=== PATIENT | female | born 1970 | race Hispanic/Latino ===

== ENCOUNTER 2017-12-10 22:45 | Inpatient (IN) | payer OTHER ==
--- NOTE | 2017-12-10 23:29 | XRay Report ---
FINAL REPORT PROCEDURE: XR CHEST 1V AP TECHNIQUE: Chest radiograph anteroposterior view. HISTORY: Dyspnea. COMPARISON: No prior studies are available for comparison. FINDINGS: Heart: Normal. Mediastinum/Vessels: Moderate cardiomegaly. Central vascular congestion. Lungs/Pleural space: Diffuse perihilar indistinctness. Perihilar airspace disease, more evident in the right upper and right lower lobes. Left retrocardiac opacity. Bilateral pleural effusions. Bony thorax: Narrowing and osteophytes of the right acromioclavicular joint. Life support devices: None. IMPRESSION: Cardiomegaly. Central vascular congestion. Diffuse perihilar indistinctness with airspace disease, more evident in the right upper and right lower lobes. Bilateral pleural effusions. Consider congestive heart failure, cannot exclude underlying pneumonia.
[2017-12-11 00:13] LABS: Hematocrit 26.4 % (30.3-42.9); Hemoglobin 8.2 gm/dl (10.1-14.3); Mean Corpuscular HGB Conc 31 % (30-34); Mean Corpuscular Volume 80 fl (79-97); Platelet Count 325 K/mm3 (140-440); Red Blood Count 3.31 M/mm3 (3.65-5.03); Red Cell Distribution Width 16.9 % (13.2-15.2)
[2017-12-11 00:23] LABS: Albumin 3.2 g/dL (3.9-5); Calcium 8.3 mg/dL (8.4-10.2)
[2017-12-11 00:33] LABS: INR 1.05 (0.87-1.13); Mean Corpuscular Hemoglobin 25 pg (28-32)
[2017-12-11 00:34] LABS: Partial Thromboplastin Time 31.7 Sec. (24.2-36.6)
[2017-12-11 00:38] LABS: Bacteria,Urine 2+ /HPF (Negative); Bilirubin,Urine NEG (Negative); Blood,Urine MOD (Negative); Color,Urine Yellow (Yellow); Mucus,Urine FEW /HPF
[2017-12-11 00:50] LABS: Trichomonas,Urine Present /HPF
[2017-12-11 00:52] LABS: Amphetamine Screen,Urine PRESUMPTIVE NEGATIVE; Cannabinoid Screen,Urine PRESUMPTIVE NEGATIVE; Cocaine Screen,Urine PRESUMPTIVE NEGATIVE; Methadone Screen,Urine PRESUMPTIVE NEGATIVE; Opiate Screen,Urine PRESUMPTIVE NEGATIVE
[2017-12-11 01:05] LABS: Benzodiazepines Screen,Urine PRESUMPTIVE POSITIVE
[2017-12-11] MEDS ORDERED: LASIX IV ONE (01:16)
[2017-12-11] MEDS ORDERED: LEVAQUIN 750MG/150ML 750 MG/150 ML BAG IV ONE (01:16)
[2017-12-11] MEDS ORDERED: BABY ASPIRIN PO ONE (01:16)
--- NOTE | 2017-12-11 02:48 | Emergency Department Report ---
HPI - General Chief Complaint: Dyspnea/Respdistress Time Seen by Provider: 12/10/17 22:54 - HPI HPI: 47-year-old female presents to the emergency department by EMS with what appears to be some respiratory distress and hypoxia. The patient had said that she just left from [facility] this morning. She says that she had spent about 10 days here and it made it to leaving AGAINST MEDICAL ADVICE at that time. The patient had left the hospital and went to a friend's house to line up examiner some stuff when she suddenly felt very hot and short of breath and laid down in the garage after taking most of her clothes off. EMS arrived, the patient having some difficulty breathing and a pulse ox in the 60s. They gave her some supplemental oxygen and eventually tried a CPAP after giving her some Versed and they got her pulse ox up into the high 80s. The patient presents slightly diaphoretic and having shortness of breath. However she is a poor historian about her history. She presented saying that her name is Linn Wong but under this name we were unable to find any previous visits. In the middle of her ED visit, the patient explained that her name is Linn Fernandez. With this given name we were able to look up her previous visit and she did in fact leave AGAINST MEDICAL ADVICE this morning. She had previously been here for fever, shortness of breath, chronic back pains and was found to have MRSA bacteremia. She was being followed by infectious disease. ED Past Medical Hx - Social History Smoking Status: Unknown if ever smoked - Medications Home Medications: Home Medications Medication Instructions Recorded Confirmed Last Taken Type Unobtainable 12/10/17 12/10/17 Unknown History ED Review of Systems ROS: Stated complaint: RESPIRATORY DISTRESS Other details as noted in HPI Constitutional: diaphoresis, fever Eyes: denies: eye pain, eye discharge, vision change ENT: denies: ear pain, throat pain Respiratory: cough, shortness of breath, SOB with exertion Cardiovascular: denies: chest pain, palpitations Gastrointestinal: nausea. denies: vomiting Genitourinary: denies: urgency, dysuria, discharge Musculoskeletal: back pain (chronic). denies: joint swelling Skin: denies: rash, lesions Neurological: denies: headache, numbness Physical Exam - Physical Exam Vital Signs: Vital Signs 12/10/17 12/10/17 12/11/17 22:45 22:50 00:05 Temperature 98.3 F Pulse Rate 126 H 130 H 101 H Respiratory 32 H 31 H 18 Rate Blood Pressure 168/103 Blood Pressure 118/69 [Left] O2 Sat by Pulse 100 100 98 Oximetry Physical Exam: GENERAL: Patient is ill-appearing. HENT: Normocephalic. Atraumatic. Patient has moist mucous membranes. EYES: Extraocular motions are intact. Pupils equal reactive to light bilaterally. NECK: Supple. Trachea is midline. CHEST/LUNGS: Coarse breath sounds throughout the chest. There is some tachypnea and accessory muscle use. There is respiratory distress noted. HEART/CARDIOVASCULAR: Regular. There is mild to moderate tachycardia. There is no murmur. ABDOMEN: Abdomen is soft, nontender. Patient has normal bowel sounds. There is no abdominal distention. SKIN: Patient is diaphoretic. NEURO: The patient is awake, alert. Patient is not very cooperative at this time. Pulling off CPAP/BiPAP mask. Unable to give a good history. MUSCULOSKELETAL: There is no tenderness or deformity. There is no limitation range of motion. There is no evidence of acute injury. ED Course Vital Signs 12/10/17 12/10/17 12/11/17 22:45 22:50 00:05 Temperature 98.3 F Pulse Rate 126 H 130 H 101 H Respiratory 32 H 31 H 18 Rate Blood Pressure 168/103 Blood Pressure 118/69 [Left] O2 Sat by Pulse 100 100 98 Oximetry ED Medical Decision Making - Lab Data Result diagrams: 12/10/17 23:17 12/10/17 23:17 - EKG Data -: EKG Interpreted by Me EKG shows normal: sinus rhythm ( PACs), axis (left axis deviation), intervals ( slightly prolonged QTC), QRS complexes, ST-T waves Rate: tachycardia (106 bpm) - EKG Data When compared to previous EKG there are: previous EKG unavailable Interpretation: other (sinus tachycardia, PACs) - Radiology Data Radiology results: report reviewed, image reviewed interpreted by me: Chest x-ray shows some cardiomegaly, pulmonary vascular congestion and some pulmonary edema. This is concerning for CHF. CTA CHEST: HISTORY: Shortness of breath, elevated d-dimer. COMPARISON: none. TECHNIQUE: Helical CT in 1.25mm intervals following IV contrast. Pulmonary embolus protocol. Sagittal and coronal reformatted images. Rotational MIP images. FINDINGS: Contrast bolus is satisfactory. No pulmonary embolus is identified. Thyroid gland: Normal. Tracheobronchial tree: Normal. Esophagus: Normal. Heart: Mild cardiomegaly. Pericardium: Normal. Mediastinum: There are a few mildly enlarged lymph nodes in the right paratracheal chain and AP window. One of the largest lymph nodes in the AP window measures 2.6 x 1.5 cm. Calcified lymph nodes are noted in the subcarinal chain and left hilar chain consistent with chronic granulomatous disease. The aorta is within normal limits. Lung Martinez: Bilateral groundglass opacities are identified which are most consistent with pulmonary edema. Focal atelectasis is noted in the posterior right upper lobe. No underlying parenchymal lung disease is appreciated. Mild atelectatic changes in both lower lobes. Pleural Spaces: Moderate layering right pleural effusion. Small layering left pleural effusion. No pneumothorax. 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 No acute fracture or bony lesion is identified. IMPRESSION: No evidence for pulmonary embolus. Cardiomegaly, pulmonary edema and bilateral pleural effusions consistent with CHF or volume overload. Slightly prominent mediastinal lymph nodes as described. These may be reactive in nature. Followup is recommended. - Medical Decision Making This patient came in as a respiratory distress. After she was slightly hypoxic and would not tolerate the CPAP mask. However we switched her to BiPAP and she was tolerated for longer periods of time, enough to get her pulse ox back up. ABG was done that was not significant for any severe acid-base disorder. Lungs sounded very wet. Chest x-ray shows signs of CHF or volume overload. Labs show a 20,000 white count, elevated BNP and the patient has moderately elevated troponins. She also had a very elevated d-dimer. About this time her workup, the patient was able to tell us the previous name that she was admitted to the hospital for nausea with look up the previous records that show she was admitted to the hospital for MRSA bacteremia. I added vancomycin to the Levaquin she was given. The patient was placed on a heparin drip secondary to the elevated troponins and possible NSTEMI. CT angiography did not show any pulmonary embolism and also appears consistent with CHF. Patient was given some Lasix for diuresis. She was admitted to the hospital for further evaluation and accepted by Dr. Ortiz. - Differential Diagnosis CHF, PE, TN, and ammonia Critical Care Time: Yes Critical care time in (mins) excluding proc time.: 35 Critical care attestation.: If time is entered above; I have spent that time in minutes in the direct care of this critically ill patient, excluding procedure time. Critical care time spent on this patient during her initial evaluation, multiple re-evaluations, managing her respiratory distress with BiPAP, ordering interpretation of labs and imaging. Critical Care Time: 35 minutes ED Disposition Clinical Impression: NSTEMI (non-ST elevated myocardial infarction), MRSA bacteremia, Respiratory distress CHF (congestive heart failure) Qualifiers: Heart failure type: unspecified Heart failure chronicity: acute Qualified Code( s): I50.9 - Heart failure, unspecified Disposition: DC-09 OP ADMIT IP TO THIS HOSP Is pt being admited?: Yes Condition: Serious
[2017-12-11] MEDS ORDERED: HEPARIN 10,000 UNITS/10 ML IV ONE (02:50)
[2017-12-11 02:54] LABS: Anisocytosis 2+; Band Neutrophils # (Manual) 3.7 K/mm3; Basophils % (Manual) 0 % (0.0-1.8); Eosinophils % (Manual) 0 % (0.0-4.3); Hypochromasia 1+; Total Cells Counted 100
[2017-12-11 02:55] LABS: Large Platelets Few; Ovalocytes Few; Stomatocytes Few; Tear Drop Cells Few
[2017-12-11] MEDS ORDERED: VANCOMYCIN/NS 1 GM/250 ML 1 GM/250 ML BAG IV SCH ×2 (03:00→07:00)
[2017-12-11] MEDS ORDERED: VANCOMYCIN PHARMACY TO DOSE IV SCH ×2 (03:00→07:00)
[2017-12-11] MEDS ORDERED: VANCOMYCIN 1,750 MG in NACL 0.9% 500 ML 500 ML IV ONE (03:00)
[2017-12-11] MEDS ORDERED: XYLOCAINE 1% MPF 5 mL INFILTRATI ONE (03:47)
[2017-12-11] MEDS ORDERED: NACL 0.9% 1000 ML 1,000 ML IV SCH (06:00)
[2017-12-11] MEDS ORDERED: ZOFRAN IV PRN (06:00)
[2017-12-11] MEDS ORDERED: SODIUM CHLORIDE FLUSH SYRINGE 10 ML IV PRN (06:00)
--- NOTE | 2017-12-11 06:18 | History and Physical Report ---
History of Present Illness Date of examination: 12/11/17 History of present illness: This is a 47-year-old woman who left the hospital AGAINST MEDICAL ADVICE this morning after she was here for 10 days. She was treated for MRSA bacteremia with vancomycin, her workup including MRI of the spine, echo was negative for sources of infection. On that visit she isn't complaining of abdominal pain, cholecystitis was ruled out. The patient states she felt trapped in the hospital and had to get out. She comes back today complaining of shortness of breath, she was hypoxic per EMS. They try to obtain a CAT scan of the chest to rule out PE in the emergency room, her IV blue and the CT was unable to be obtained Review of systems Constitutional: no weight loss, chills, fever Ears, eyes, nose, mouth and throat: no nasal congestion, no nasal discharge, no sinus pressure, no vision change, no red eye. Neck: No neck pain or rigidity. Cardiovascular: no chest pain, palpitations Respiratory: no cough Gastrointestinal: no abdominal pain hematochezia Genitourinary : no frequency , no hematuria Musculoskeletal: no joint swelling or muscle ache Integumentary: no rash, no pruritis Neurological: no parathesias, no numbness, no focal weakness Endocrine: no cold or heat intolerance, no polyuria or polydipsia Hematologic/Lymphatic: no easy bruising, no easy bleeding, no gland swelling Allergic/Immunologic: no urticaria, no angioedema. PAST MEDICAL HISTORY: MRSA bacteremia PAST SURGICAL HISTORY: SOCIAL HISTORY: Methamphetamine use, smoke a pack a day, alcohol use FAMILY HISTORY: Hypertension Medications and Allergies Allergies Allergy/AdvReac Type Severity Reaction Status Date / Time Unable to Assess Allergy Unverified 12/10/17 22:49 Home Medications Medication Instructions Recorded Confirmed Last Taken Type Unobtainable 12/10/17 12/10/17 Unknown History Active Meds: Active Medications Acetaminophen (Tylenol) 650 mg PO Q4H PRN PRN Reason: Pain MILD(1-3)/Fever >100.5/WAN Aspirin (Aspirin) 325 mg PO QDAY ANNE-MARIE Enoxaparin Sodium (Lovenox) 30 mg SUB-Q QDAY [facility] Heparin Sodium/Sodium Chloride (Heparin/ 0.45% Nacl-25,000 Unit/500 Ml) 25,000 unit in 500 mls @ 20 mls/hr IV TITRATE ANNE-MARIE; Protocol Vancomycin HCl 1,250 mg/ (Sodium Chloride) 262.5 mls @ 166.667 mls/hr IV Q8H ANNE-MARIE Sodium Chloride (Nacl 0.9% 1000 Ml) 1,000 mls @ 100 mls/hr IV DIRECT ANNE-MARIE Vancomycin HCl (Vancomycin/Ns 1 Gm/250 Ml) 1 gm in 250 mls @ 167.007 mls/hr IV ONCE ANNE-MARIE; Protocol Ondansetron HCl (Zofran) 4 mg IV Q8H PRN PRN Reason: Nausea And Vomiting Sodium Chloride (Sodium Chloride Flush Syringe 10 Ml) 10 ml IV BID ANNE-MARIE Sodium Chloride (Sodium Chloride Flush Syringe 10 Ml) 10 ml IV PRN PRN PRN Reason: LINE FLUSH Vancomycin HCl (Vancomycin Pharmacy To Dose) 1 each IV PKCONSULT ANNE-MARIE Vancomycin HCl (Vancomycin Pharmacy To Dose) 1 each IV PKCONSULT ANNE-MARIE Exam - Physical Exam Narrative exam: Gen. appearance: Patient lying in bed, no apparent distress HEENT: Normocephalic, atraumatic, pupils equally round and reactive to light, eyes are , extraocular movement intact, and no sclericterus,. No JVD or thyromegaly or nodule,neck supple, no carotid bruit ,mucous membranes moist, no exudate or erythema Heart: S1, S2, regular rate and rhythm Lungs: Crackles bilaterally, breathing comfortable Abdomen: Positive bowel sounds, non-tender, nondistended, no organomegaly Extremity:no edema cyanosis, clubbing Skin: no rash, dry, warm Neuro: Oriented 3, cranial nerves II-12 intact, speech is fluent, motor and sensory intact - Constitutional Vitals: Temp Pulse Resp BP Pulse Ox 98.3 F 88 17 118/69 98 12/11/17 00:05 12/11/17 03:00 12/11/17 03:00 12/11/17 00:05 12/11/17 03:00 Results - Labs CBC & Chem 7: 12/10/17 23:17 12/10/17 23:17 Labs: Abnormal lab results 12/10/17 12/10/17 12/10/17 Range/Units 22:57 23:17 23:17 WBC (4.5-11.0) K/mm3 RBC (3.65-5.03) M/mm3 Hgb (10.1-14.3) gm/dl Hct (30.3-42.9) % MCH (28-32) pg RDW (13.2-15.2) % Seg Neuts % (Manual) (40.0-70.0) % Lymphocytes % (Manual) (13.4-35.0) % Seg Neutrophils # Man (1.8-7.7) K/mm3 Lymphocytes # (Manual) (1.2-5.4) K/mm3 Monocytes # (Manual) (0.0-0.8) K/mm3 D-Dimer 4736.01 H (0-234) ng/mlDDU POC ABG pCO2 30.9 L (35-45) POC ABG pO2 127 H (80-105) Sodium 136 L (137-145) mmol/L Potassium 3.3 L (3.6-5.0) mmol/L Chloride 91.1 L (98-107) mmol/L Glucose 158 H (65-100) mg/dL Calcium 8.3 L (8.4-10.2) mg/dL Alkaline Phosphatase 142 H (35-129) units/L Troponin T 2.340 H* (0.00-0.029) ng/mL NT-Pro-B Natriuret Pep (0-450) pg/mL Albumin 3.2 L (3.9-5) g/dL Urine WBC (Auto) (0.0-6.0) /HPF 12/10/17 12/10/17 12/11/17 Range/Units 23:17 23:17 00:03 WBC 28.8 H (4.5-11.0) K/mm3 RBC 3.31 L (3.65-5.03) M/mm3 Hgb 8.2 L (10.1-14.3) gm/dl Hct 26.4 L (30.3-42.9) % MCH 25 L (28-32) pg RDW 16.9 H (13.2-15.2) % Seg Neuts % (Manual) 81.0 H (40.0-70.0) % Lymphocytes % (Manual) 3.0 L (13.4-35.0) % Seg Neutrophils # Man 23.3 H (1.8-7.7) K/mm3 Lymphocytes # (Manual) 0.9 L (1.2-5.4) K/mm3 Monocytes # (Manual) 0.9 H (0.0-0.8) K/mm3 D-Dimer (0-234) ng/mlDDU POC ABG pCO2 (35-45) POC ABG pO2 (80-105) Sodium (137-145) mmol/L Potassium (3.6-5.0) mmol/L Chloride (98-107) mmol/L Glucose (65-100) mg/dL Calcium (8.4-10.2) mg/dL Alkaline Phosphatase (35-129) units/L Troponin T (0.00-0.029) ng/mL NT-Pro-B Natriuret Pep 30505 H (0-450) pg/mL Albumin (3.9-5) g/dL Urine WBC (Auto) 24.0 H (0.0-6.0) /HPF 12/11/17 Range/Units 02:26 WBC (4.5-11.0) K/mm3 RBC (3.65-5.03) M/mm3 Hgb (10.1-14.3) gm/dl Hct (30.3-42.9) % MCH (28-32) pg RDW (13.2-15.2) % Seg Neuts % (Manual) (40.0-70.0) % Lymphocytes % (Manual) (13.4-35.0) % Seg Neutrophils # Man (1.8-7.7) K/mm3 Lymphocytes # (Manual) (1.2-5.4) K/mm3 Monocytes # (Manual) (0.0-0.8) K/mm3 D-Dimer (0-234) ng/mlDDU POC ABG pCO2 (35-45) POC ABG pO2 (80-105) Sodium (137-145) mmol/L Potassium (3.6-5.0) mmol/L Chloride (98-107) mmol/L Glucose (65-100) mg/dL Calcium (8.4-10.2) mg/dL Alkaline Phosphatase (35-129) units/L Troponin T 1.790 H* D (0.00-0.029) ng/mL NT-Pro-B Natriuret Pep (0-450) pg/mL Albumin (3.9-5) g/dL Urine WBC (Auto) (0.0-6.0) /HPF - Imaging and Cardiology EKG: image reviewed Chest x-ray: image reviewed Assessment and Plan Assessment Acute respiratory failure CHF, new onset, systolic dysfunction NSTMI MRSA bacteremia pneumonia UTI Plan Admit to medicine Continue BiPAP Diuresis and IV Lasix, continue heparin drip, start aspirin Blood pressure will not tolerate beta victorina, MESSI inhibitor Check cardiac enzymes, consult cardiology Start vancomycin, Zosyn, follow cultures Check V/Q, replete potassium DVT prophylaxis
[2017-12-11] MEDS ORDERED: VANCOMYCIN 1,250 MG in NACL 0.9% 250ML 250 ML IV SCH ×2 (06:30→10:00)
[2017-12-11] MEDS ORDERED: K-DUR PO ONE ×2 (06:36→16:00)
[2017-12-11 06:37] LABS: Creatine Kinase MB 12.8 ng/mL (0.0-4.0)
[2017-12-11] MEDS ORDERED: ATIVAN ONE (06:39)
[2017-12-11] MEDS ORDERED: ATIVAN IV ONE (06:50)
[2017-12-11] MEDS: ZOSYN/NS 4.5GM/100ML 4.5 GM/100 ML VIAL IV SCH ×3 (07:06→21:24)
[2017-12-11] MEDS: HEPARIN/ 0.45% NACL-25,000 UNIT/500 ML 25,000 UNIT/500 ML BAG IV SCH (07:06)
--- NOTE | 2017-12-11 07:43 | Cat Scan Report ---
CTA CHEST: HISTORY: Shortness of breath, elevated d-dimer. COMPARISON: none. TECHNIQUE: Helical CT in 1.25mm intervals following IV contrast. Pulmonary embolus protocol. Sagittal and coronal reformatted images. Rotational MIP images. FINDINGS: Contrast bolus is satisfactory. No pulmonary embolus is identified. Thyroid gland: Normal. Tracheobronchial tree: Normal. Esophagus: Normal. Heart: Mild cardiomegaly. Pericardium: Normal. Mediastinum: There are a few mildly enlarged lymph nodes in the right paratracheal chain and AP window. One of the largest lymph nodes in the AP window measures 2.6 x 1.5 cm. Calcified lymph nodes are noted in the subcarinal chain and left hilar chain consistent with chronic granulomatous disease. The aorta is within normal limits. Lung Martinez: Bilateral groundglass opacities are identified which are most consistent with pulmonary edema. Focal atelectasis is noted in the posterior right upper lobe. No underlying parenchymal lung disease is appreciated. Mild atelectatic changes in both lower lobes. Pleural Spaces: Moderate layering right pleural effusion. Small layering left pleural effusion. No pneumothorax. 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 No acute fracture or bony lesion is identified. IMPRESSION: No evidence for pulmonary embolus. Cardiomegaly, pulmonary edema and bilateral pleural effusions consistent with CHF or volume overload. Slightly prominent mediastinal lymph nodes as described. These may be reactive in nature. Followup is recommended.
[2017-12-11] MEDS ORDERED: LOVENOX SUB-Q SCH (10:00)
--- NOTE | 2017-12-11 11:03 | Consultation ---
History of Present Illness Consult date: 12/11/17 Requesting physician: ZORAIDA PATEL History of present illness: The pt is a 47-year-old female who presented to the emergency department on 12/11/2017 by EMS with complaints of shortness of breath and fever. The patient was recently admitted to [facility] for evaluation and treatment of MRSA bacteremia and she left AGAINST MEDICAL ADVICE on the morning of 12/11. She is sleeping on evaluation and says she is "trying to wake up". She answers minimal questions and is a poor historian. She denies any chest pain, palpitations, n/v , dizziness or syncope. Of note, on her prior hospitalization, she was scheduled for LIZZ for further evaluation MRSA bacteremia but left AMA before this could be completed. Past History Social history: other (marijuana use, amphetamine use) Medications and Allergies Allergies Allergy/AdvReac Type Severity Reaction Status Date / Time Unable to Assess Allergy Unverified 12/10/17 22:49 Home Medications Medication Instructions Recorded Confirmed Last Taken Type Unobtainable 12/10/17 12/10/17 Unknown History Active Meds: Active Medications Acetaminophen (Tylenol) 650 mg PO Q4H PRN PRN Reason: Pain MILD(1-3)/Fever >100.5/WAN Aspirin (Aspirin) 325 mg PO QDAY ANNE-MARIE Enoxaparin Sodium (Lovenox) 40 mg SUB-Q QDAY [facility]NE-MARIE Furosemide (Lasix) 40 mg IV Q12H ANNE-MARIE Heparin Sodium/Sodium Chloride (Heparin/ 0.45% Nacl-25,000 Unit/500 Ml) 25,000 unit in 500 mls @ 20 mls/hr IV TITRATE ANNE-MARIE; Protocol Last Admin: 12/11/17 07:06 Dose: 1,000 units/hr, 20 mls/hr Vancomycin HCl 1,250 mg/ (Sodium Chloride) 262.5 mls @ 166.667 mls/hr IV Q12HR ANNE-MARIE Piperacillin Sod/Tazobactam Sod (Zosyn/Ns 4.5gm/100ml) 4.5 gm in 100 mls @ 200 mls/hr IV Q8HR ANNE-MARIE; Protocol Last Admin: 12/11/17 07:06 Dose: 200 mls/hr Ondansetron HCl (Zofran) 4 mg IV Q8H PRN PRN Reason: Nausea And Vomiting Sodium Chloride (Sodium Chloride Flush Syringe 10 Ml) 10 ml IV BID ANNE-MARIE Sodium Chloride (Sodium Chloride Flush Syringe 10 Ml) 10 ml IV PRN PRN PRN Reason: LINE FLUSH Last Admin: 12/11/17 06:31 Dose: 10 ml Vancomycin HCl (Vancomycin Pharmacy To Dose) 1 each IV PKCONSULT ANNE-MARIE Review of Systems Constitutional: fever Cardiovascular: shortness of breath, no chest pain, no palpitations, no rapid/ irregular heart beat, no edema, no syncope, no lightheadedness Respiratory: shortness of breath Physical Examination Vital Signs Pulse Resp Pulse Ox 136 H 25 H 98 12/10/17 22:36 12/10/17 22:36 12/10/17 22:36 General appearance: other (sleeping) HEENT: Positive: PERRL, Normocephaly, Mucus Membranes Moist Neck: Positive: neck supple, trachea midline Cardiac: Positive: Reg Rate and Rhythm, S1/S2 Lungs: Positive: clear to auscultation Neuro: Positive: Grossly Intact Abdomen: Positive: Soft. Negative: Tender Skin: Positive: Clear. Negative: Rash, Wound Extremities: Absent: edema Results 12/10/17 23:17 12/10/17 23:17 Cardiac Enzymes 12/10/17 12/11/17 Range/Units 23:17 05:10 AST 39 (5-40) units/L CK-MB (CK-2) 12.8 H (0.0-4.0) ng/mL Coagulation 12/10/17 Range/Units 23:17 PT 14.2 (12.2-14.9) Sec. INR 1.05 (0.87-1.13) APTT 31.7 (24.2-36.6) Sec. Lipids 12/10/17 Range/Units 23:17 Triglycerides 105 (2-149) mg/dL Cholesterol 112 (50-199) mg/dL CBC 12/10/17 Range/Units 23:17 WBC 28.8 H (4.5-11.0) K/mm3 RBC 3.31 L (3.65-5.03) M/mm3 Hgb 8.2 L (10.1-14.3) gm/dl Hct 26.4 L (30.3-42.9) % Plt Count 325 (140-440) K/mm3 Comprehensive Metabolic Panel 12/10/17 Range/Units 23:17 Sodium 136 L (137-145) mmol/L Potassium 3.3 L (3.6-5.0) mmol/L Chloride 91.1 L (98-107) mmol/L Carbon Dioxide 23 (22-30) mmol/L BUN 14 (7-17) mg/dL Creatinine 1.0 (0.7-1.2) mg/dL Glucose 158 H (65-100) mg/dL Calcium 8.3 L (8.4-10.2) mg/dL AST 39 (5-40) units/L ALT 28 (7-56) units/L Alkaline Phosphatase 142 H (35-129) units/L Total Protein 7.0 (6.3-8.2) g/dL Albumin 3.2 L (3.9-5) g/dL - Imaging and Cardiology Echo: report reviewed EKG: report reviewed, image reviewed EKG interpretations - Telemetry EKG Rhythm: Sinus Rhythm - EKG Sinus rhythms and dysrhythmias: sinus rhythm Assessment and Plan Continue diuresis. Replete K+ and repeat BMP in AM. Optimize anti-ischemic regimen. Continue heparin gtt. Will plan for lexiscan MPI stress test in AM. Following pharmacologic stress test, will proceed with LIZZ tomorrow for further evaluation of MRSA bacteremia. NPO after MN. The patient has been seen in conjunction with Dr. Schmitz who agrees with the assessment and plan of care. - Patient Problems (1) NSTEMI (non-ST elevated myocardial infarction) Current Visit: Yes Status: Acute (2) Heart failure with reduced ejection fraction Current Visit: Yes Status: Acute (3) Cardiomyopathy Current Visit: Yes Status: Acute (4) Sepsis Current Visit: Yes Status: Acute (5) MRSA bacteremia Current Visit: Yes Status: Acute (6) Anemia Current Visit: Yes Status: Acute (7) Hypokalemia Current Visit: Yes Status: Acute (8) Polysubstance abuse Current Visit: Yes Status: Chronic
--- NOTE | 2017-12-11 11:26 | Event Note ---
Date: 12/11/17 Sincerely and examined medical records reviewed Patient with MRSA septicemia, extensively evaluated during last admission, ID recommended Long-term IV vancomycin stop date 01/05/2018, patient was scheduled to get a PICC line However patient did not want to stay in the hospital, refused PICC line and left AMA. Patient again presented to the emergency room with shortness of breath and chest pain Admitted with non-ST elevation UT, evaluated by cardiology, symptomatically being managed On heparin drip, for possible stress test tomorrow Today patient feels slightly better Vital signs reviewed Physical examination unremarkable Agree with the current management Follow cardiology evaluation and recommendations Plan of care reviewed with the patient and her nurse
[2017-12-11] MEDS: ASPIRIN PO SCH (12:20)
[2017-12-11] MEDS: SODIUM CHLORIDE FLUSH SYRINGE 10 ML IV SCH ×2 (12:20→21:26)
[2017-12-11] MEDS: LASIX IV SCH ×2 (12:20→20:57)
[2017-12-11] MEDS: VANCOMYCIN 1,250 MG in NACL 0.9% 250ML 250 ML IV SCH ×2 (12:20→21:24)
[2017-12-11 14:05] LABS: Chol/HDL Ratio 3.86 %
[2017-12-11] MEDS: ATIVAN PO PRN (14:22)
[2017-12-11 14:45] LABS: Creatine Kinase MB 10.7 ng/mL (0.0-4.0)
[2017-12-11] MEDS: LOPRESSOR PO SCH (21:25)
[2017-12-12] MEDS: ATIVAN PO PRN (00:16)
[2017-12-12] MEDS: ZOSYN/NS 4.5GM/100ML 4.5 GM/100 ML VIAL IV SCH ×2 (05:24→18:31)
[2017-12-12 05:37] LABS: Basophils % (Auto) 0.2 % (0.0-1.8); Eosinophils % (Auto) 0.2 % (0.0-4.3); Hematocrit 22.2 % (30.3-42.9); Hemoglobin 7.1 gm/dl (10.1-14.3); Lymphocytes # (Auto) 1.7 K/mm3 (1.2-5.4); Lymphocytes % (Auto) 10.2 % (13.4-35.0); Mean Corpuscular HGB Conc 32 % (30-34); Mean Corpuscular Volume 80 fl (79-97); Monocytes # (Auto) 0.8 K/mm3 (0.0-0.8); Monocytes % (Auto) 4.8 % (0.0-7.3); Platelet Count 259 K/mm3 (140-440); Red Blood Count 2.79 M/mm3 (3.65-5.03); Red Cell Distribution Width 17.5 % (13.2-15.2)
[2017-12-12 05:40] LABS: Mean Corpuscular Hemoglobin 25 pg (28-32)
[2017-12-12 06:02] LABS: BUN/Creatinine Ratio 29; Blood Urea Nitrogen 26 mg/dL (7-17); Calcium 7.8 mg/dL (8.4-10.2); Hemolysis Index 0
[2017-12-12] MEDS: HEPARIN/ 0.45% NACL-25,000 UNIT/500 ML 25,000 UNIT/500 ML BAG IV SCH (06:02)
[2017-12-12] MEDS ORDERED: LEXISCAN IV ONE (08:31)
[2017-12-12] MEDS: LASIX IV SCH ×3 (10:34→20:41)
[2017-12-12] MEDS ORDERED: HURRICAINE ONE 20% TOPICAL SPRAY MM (12:09)
[2017-12-12] MEDS ORDERED: NACL 0.9% 500 ML 500 ML ONE (12:09)
--- NOTE | 2017-12-12 12:14 | Anesthesia Day of Surgery ---
Anesthesia Day of Surgery - Day of Surgery Patient Examined: Yes Patient H&P Reviewed: Yes Patient is NPO: Yes
--- NOTE | 2017-12-12 12:15 | Anesthesia Consultation ---
Anesthesia Consult and Med Hx Date of service: 12/12/17 - Airway Anesthetic Teeth Evaluation: Poor, Edentulous ROM Head & Neck: Adequate Mental/Hyoid Distance: Adequate Mallampati Class: Class II Intubation Access Assessment: Probably Good - Pulmonary Exam CTA: Yes - Cardiac Exam Anesthetic Concerns: Possible Vegatations on Cardiac Valves. Hx of Fever this Admission, SOB... but clear to auscultation... - Pre-Operative Health Status ASA Pre-Surgery Classification: ASA3 Proposed Anesthetic Plan: MAC - Cardiovascular System Hx Hypertension: Yes - Other Systems Hx Substance Use: Yes
[2017-12-12] MEDS ORDERED: DIPRIVAN 10 MG/ML IV ONE (12:58)
[2017-12-12] MEDS ORDERED: XYLOCAINE MPF 2% ONE (13:00)
[2017-12-12] MEDS ORDERED: HURRICAINE ONE 20% TOPICAL SPRAY MM NR (13:00)
[2017-12-12] MEDS ORDERED: NACL 0.9% 500 ML 500 ML IV SCH (13:00)
[2017-12-12] MEDS ORDERED: LASIX ONE (13:47)
[2017-12-12] MEDS ORDERED: LOPRESSOR IV ONE ×2 (13:47→13:49)
--- NOTE | 2017-12-12 16:02 | Progress Note ---
Assessment and Plan S/p lexiscan MPI stress test which showed fixed perfusion defects, no active ischemia, EF 33%. D/c heparin gtt. S/p LIZZ which showed large tricuspid valve vegetation, EF 40%, moderate , moderate MR, mild TR. Will consult ID and defer further management of endocarditis to ID. Continue diuresis. The patient has been seen in conjunction with Dr. Schmitz who agrees with the assessment and plan of care. - Patient Problems (1) NSTEMI (non-ST elevated myocardial infarction) Current Visit: Yes Status: Acute (2) Heart failure with reduced ejection fraction Current Visit: Yes Status: Acute (3) Cardiomyopathy Current Visit: Yes Status: Acute (4) Endocarditis of tricuspid valve Current Visit: Yes Status: Acute (5) Sepsis Current Visit: Yes Status: Acute (6) MRSA bacteremia Current Visit: Yes Status: Acute (7) Anemia Current Visit: Yes Status: Acute (8) Hypokalemia Current Visit: Yes Status: Acute (9) Polysubstance abuse Current Visit: Yes Status: Chronic (10) Aortic stenosis Current Visit: Yes Status: Chronic (11) Mitral regurgitation Current Visit: Yes Status: Chronic Subjective Date of service: 12/12/17 Principal diagnosis: HF; sepsis Interval history: pt for stress test and LIZZ today. no current cardiac complaints. Objective Last Vital Signs Temp 99.3 F 12/12/17 15:45 Pulse 98 H 12/12/17 16:00 Resp 25 H 12/12/17 16:00 BP 127/75 12/12/17 16:00 Pulse Ox 98 12/12/17 16:00 - Physical Examination General: No Apparent Distress HEENT: Positive: PERRL, Normocephaly, Mucus Membranes Moist Neck: Positive: neck supple, trachea midline Cardiac: Positive: Reg Rate and Rhythm, S1/S2, Systolic Murmur Lungs: Positive: Decreased Breath Sounds Neuro: Positive: Grossly Intact Abdomen: Positive: Soft. Negative: Tender Skin: Positive: Clear. Negative: Rash, Wound Extremities: Absent: edema - Labs and Meds CBC 12/12/17 Range/Units 05:19 WBC 16.6 H (4.5-11.0) K/mm3 RBC 2.79 L (3.65-5.03) M/mm3 Hgb 7.1 L (10.1-14.3) gm/dl Hct 22.2 L (30.3-42.9) % Plt Count 259 (140-440) K/mm3 Lymph # 1.7 (1.2-5.4) K/mm3 [place] # 0.8 (0.0-0.8) K/mm3 Eos # 0.0 (0.0-0.4) K/mm3 Baso # 0.0 (0.0-0.1) K/mm3 Comprehensive Metabolic Panel 12/12/17 Range/Units 05:19 Sodium 143 D (137-145) mmol/L Potassium 4.1 D (3.6-5.0) mmol/L Chloride 102.3 (98-107) mmol/L Carbon Dioxide 28 (22-30) mmol/L BUN 26 H (7-17) mg/dL Creatinine 0.9 (0.7-1.2) mg/dL Glucose 112 H (65-100) mg/dL Calcium 7.8 L (8.4-10.2) mg/dL - Imaging and Cardiology EKG: report reviewed, image reviewed Echo: report reviewed - Telemetry EKG Rhythm: Sinus Rhythm - EKG Sinus rhythms and dysrhythmias: sinus rhythm
[2017-12-12] MEDS: ASPIRIN PO SCH (16:28)
--- NOTE | 2017-12-12 17:35 | Progress Note ---
Assessment and Plan Assessment and plan: --Endocarditis.[Tricuspid valve], positive staph aureus bacteremia Consult ID, continue vancomycin, discussed with ID continue vancomycin Repeat blood cultures. --Persistent MRSA; contact isolation, IV vancomycin Supportive care --Acute on chronic systolic congestive heart failure Ejection fraction 30% to 40%, continue anti-failure medications Cardiology following --Non-ST elevation [place]; stress test fixed defect Continue current cardiac medications, cardiology following --Sepsis; Secondary to endocarditis, MRSA bacteremia, continue Vanco Gentamicin and rifampin is added, follow ID evaluation and recommendations --Anemia; closely monitor H&H and transfuse as needed --Polysubstance abuse; counseling and patient strongly advised to quit recreational drug use --Aortic stenosis; supportive care cardiology following --DVT prophylaxis; Lovenox History Interval history: Patient seen and examined medical records reviewed Underwent stress test which was negative for reversible ischemia, EF 33-40% LIZZ positive for endocarditis[tricuspid valve vegetation] Patient has no new complaints Vital signs reviewed Hospitalist Physical - Constitutional Vitals: Temp Pulse Resp BP Pulse Ox 99.3 F 98 H 25 H 127/75 98 12/12/17 15:45 12/12/17 16:00 12/12/17 16:00 12/12/17 16:00 12/12/17 16:00 General appearance: Present: no acute distress, well-nourished, other (sleeping) - EENT Eyes: Present: PERRL, EOM intact - Neck Neck: Present: supple, normal ROM - Respiratory Respiratory effort: normal Respiratory: bilateral: diminished, negative: rales, rhonchi, wheezing - Cardiovascular Rhythm: regular Heart Sounds: Present: S1 & S2 - Extremities Extremities: no ischemia, No edema - Abdominal General gastrointestinal: soft, non-tender, non-distended, normal bowel sounds - Integumentary Integumentary: Present: clear, warm - Psychiatric Psychiatric: appropriate mood/affect, cooperative - Neurologic Neurologic: CNII-XII intact, moves all extremities Results - Labs CBC & Chem 7: 12/12/17 05:19 12/12/17 05:19 Labs: Laboratory Last Values WBC 16.6 K/mm3 (4.5-11.0) H 12/12/17 05:19 RBC 2.79 M/mm3 (3.65-5.03) L 12/12/17 05:19 Hgb 7.1 gm/dl (10.1-14.3) L 12/12/17 05:19 Hct 22.2 % (30.3-42.9) L 12/12/17 05:19 MCV 80 fl (79-97) 12/12/17 05:19 MCH 25 pg (28-32) L 12/12/17 05:19 MCHC 32 % (30-34) 12/12/17 05:19 RDW 17.5 % (13.2-15.2) H 12/12/17 05:19 Plt Count 259 K/mm3 (140-440) 12/12/17 05:19 Lymph % (Auto) 10.2 % (13.4-35.0) L 12/12/17 05:19 [place] % (Auto) 4.8 % (0.0-7.3) 12/12/17 05:19 Eos % (Auto) 0.2 % (0.0-4.3) 12/12/17 05:19 Baso % (Auto) 0.2 % (0.0-1.8) 12/12/17 05:19 Lymph # 1.7 K/mm3 (1.2-5.4) 12/12/17 05:19 [place] # 0.8 K/mm3 (0.0-0.8) 12/12/17 05:19 Eos # 0.0 K/mm3 (0.0-0.4) 12/12/17 05:19 Baso # 0.0 K/mm3 (0.0-0.1) 12/12/17 05:19 Add Manual Diff Complete 12/10/17 23:17 Total Counted 100 12/10/17 23:17 Seg Neutrophils % 84.6 % (40.0-70.0) H 12/12/17 05:19 Seg Neuts % (Manual) 81.0 % (40.0-70.0) H 12/10/17 23:17 Band Neutrophils % 13.0 % 12/10/17 23:17 Lymphocytes % (Manual) 3.0 % (13.4-35.0) L 12/10/17 23:17 Reactive Lymphs % (Man) 0 % 12/10/17 23:17 Monocytes % (Manual) 3.0 % (0.0-7.3) 12/10/17 23:17 Eosinophils % (Manual) 0 % (0.0-4.3) 12/10/17 23:17 Basophils % (Manual) 0 % (0.0-1.8) 12/10/17 23:17 Metamyelocytes % 0 % 12/10/17 23:17 Myelocytes % 0 % 12/10/17 23:17 Promyelocytes % 0 % 12/10/17 23:17 Blast Cells % 0 % 12/10/17 23:17 Nucleated RBC % Not Reportable 12/10/17 23:17 Seg Neutrophils # 14.1 K/mm3 (1.8-7.7) H 12/12/17 05:19 Seg Neutrophils # Man 23.3 K/mm3 (1.8-7.7) H 12/10/17 23:17 Band Neutrophils # 3.7 K/mm3 12/10/17 23:17 Lymphocytes # (Manual) 0.9 K/mm3 (1.2-5.4) L 12/10/17 23:17 Abs React Lymphs (Man) 0.0 K/mm3 12/10/17 23:17 Monocytes # (Manual) 0.9 K/mm3 (0.0-0.8) H 12/10/17 23:17 Eosinophils # (Manual) 0.0 K/mm3 (0.0-0.4) 12/10/17 23:17 Basophils # (Manual) 0.0 K/mm3 (0.0-0.1) 12/10/17 23:17 Metamyelocytes # 0.0 K/mm3 12/10/17 23:17 Myelocytes # 0.0 K/mm3 12/10/17 23:17 Promyelocytes # 0.0 K/mm3 12/10/17 23:17 Blast Cells # 0.0 K/mm3 12/10/17 23:17 WBC Morphology Not Reportable 12/10/17 23:17 Hypersegmented Neuts Not Reportable 12/10/17 23:17 Hyposegmented Neuts Not Reportable 12/10/17 23:17 Hypogranular Neuts Not Reportable 12/10/17 23:17 Smudge Cells Not Reportable 12/10/17 23:17 Toxic Granulation Not Reportable 12/10/17 23:17 Toxic Vacuolation Not Reportable 12/10/17 23:17 Dohle Bodies Not Reportable 12/10/17 23:17 Pelger-Huet Anomaly Not Reportable 12/10/17 23:17 Adelaida Rods Not Reportable 12/10/17 23:17 Platelet Estimate Appears normal 12/10/17 23:17 Clumped Platelets Not Reportable 12/10/17 23:17 Plt Clumps, EDTA Not Reportable 12/10/17 23:17 Large Platelets Few 12/10/17 23:17 Giant Platelets Not Reportable 12/10/17 23:17 Platelet Satelliting Not Reportable 12/10/17 23:17 Plt Morphology Comment Not Reportable 12/10/17 23:17 RBC Morphology Not Reportable 12/10/17 23:17 Dimorphic RBCs Not Reportable 12/10/17 23:17 Polychromasia 1+ 12/10/17 23:17 Hypochromasia 1+ 12/10/17 23:17 Poikilocytosis Not Reportable 12/10/17 23:17 Anisocytosis 2+ 12/10/17 23:17 Microcytosis Not Reportable 12/10/17 23:17 Macrocytosis Not Reportable 12/10/17 23:17 Spherocytes Not Reportable 12/10/17 23:17 Pappenheimer Bodies Not Reportable 12/10/17 23:17 Sickle Cells Not Reportable 12/10/17 23:17 Target Cells Not Reportable 12/10/17 23:17 Tear Drop Cells Few 12/10/17 23:17 Ovalocytes Few 12/10/17 23:17 Stomatocytes Few 12/10/17 23:17 Helmet Cells Not Reportable 12/10/17 23:17 Peguero-[place] Bodies Not Reportable 12/10/17 23:17 [place] Rings Not Reportable 12/10/17 23:17 Concepcion Cells Not Reportable 12/10/17 23:17 Bite Cells Not Reportable 12/10/17 23:17 Crenated Cell Not Reportable 12/10/17 23:17 Elliptocytes Few 12/10/17 23:17 Acanthocytes (Spur) Not Reportable 12/10/17 23:17 Rouleaux Not Reportable 12/10/17 23:17 Hemoglobin C Crystals Not Reportable 12/10/17 23:17 Schistocytes Not Reportable 12/10/17 23:17 Malaria parasites Not Reportable 12/10/17 23:17 Slim Bodies Not Reportable 12/10/17 23:17 Hem Pathologist Commnt No 12/10/17 23:17 PT 14.2 Sec. (12.2-14.9) 12/10/17 23:17 INR 1.05 (0.87-1.13) 12/10/17 23:17 APTT 31.7 Sec. (24.2-36.6) 12/10/17 23:17 D-Dimer 4736.01 ng/mlDDU (0-234) H 12/10/17 23:17 Heparin Anti-Xa Level 0.14 U.I./ml (0.3-0.7) L 12/12/17 11:17 POC ABG pH 7.399 (7.35-7.45) 12/10/17 22:57 POC ABG pCO2 30.9 (35-45) L 12/10/17 22:57 POC ABG pO2 127 (80-105) H 12/10/17 22:57 POC ABG HCO3 19.1 12/10/17 22:57 POC ABG Total CO2 20 12/10/17 22:57 POC ABG O2 Sat 99 12/10/17 22:57 POC ABG Base Excess -6 12/10/17 22:57 FiO2 100 % 12/10/17 22:57 Sodium 143 mmol/L (137-145) D 12/12/17 05:19 Potassium 4.1 mmol/L (3.6-5.0) D 12/12/17 05:19 Chloride 102.3 mmol/L (98-107) 12/12/17 05:19 Carbon Dioxide 28 mmol/L (22-30) 12/12/17 05:19 Anion Gap 17 mmol/L 12/12/17 05:19 BUN 26 mg/dL (7-17) H 12/12/17 05:19 Creatinine 0.9 mg/dL (0.7-1.2) 12/12/17 05:19 Estimated GFR > 60 ml/min 12/12/17 05:19 BUN/Creatinine Ratio 29 % 12/12/17 05:19 Glucose 112 mg/dL (65-100) H 12/12/17 05:19 Calcium 7.8 mg/dL (8.4-10.2) L 12/12/17 05:19 Total Bilirubin 0.50 mg/dL (0.1-1.2) 12/10/17 23:17 AST 39 units/L (5-40) 12/10/17 23:17 ALT 28 units/L (7-56) 12/10/17 23:17 Alkaline Phosphatase 142 units/L (35-129) H 12/10/17 23:17 Total Creatine Kinase 95 units/L (30-135) 12/11/17 14:09 CK-MB (CK-2) 10.7 ng/mL (0.0-4.0) H 12/11/17 14:09 CK-MB (CK-2) Rel Index 11.2 (0-4) H 12/11/17 14:09 Troponin T 1.570 ng/mL (0.00-0.029) H* 12/11/17 14:09 NT-Pro-B Natriuret Pep 82618 pg/mL (0-450) H 12/10/17 23:17 Total Protein 7.0 g/dL (6.3-8.2) 12/10/17 23:17 Albumin 3.2 g/dL (3.9-5) L 12/10/17 23:17 Albumin/Globulin Ratio 0.8 % 12/10/17 23:17 Triglycerides 105 mg/dL (2-149) 12/10/17 23:17 Cholesterol 112 mg/dL (50-199) 12/10/17 23:17 LDL Cholesterol Direct 61 mg/dL (50-130) 12/10/17 23:17 HDL Cholesterol 29 mg/dL (40-59) L 12/10/17 23:17 Cholesterol/HDL Ratio 3.86 % 12/10/17 23:17 HCG, Qual Negative (Negative) 12/10/17 23:17 Urine Color Yellow (Yellow) 12/11/17 00:03 Urine Turbidity Hazy (Clear) 12/11/17 00:03 Urine pH 6.0 (5.0-7.0) 12/11/17 00:03 Ur Specific [place] 1.010 (1.003-1.030) 12/11/17 00:03 Urine Protein 100 mg/dl mg/dL (Negative) 12/11/17 00:03 Urine Glucose (UA) 50 mg/dL (Negative) 12/11/17 00:03 Urine Ketones Neg mg/dL (Negative) 12/11/17 00:03 Urine Blood Mod (Negative) 12/11/17 00:03 Urine Nitrite Neg (Negative) 12/11/17 00:03 Urine Bilirubin Neg (Negative) 12/11/17 00:03 Urine Urobilinogen 2.0 mg/dL (<2.0) 12/11/17 00:03 Ur Leukocyte Esterase Mod (Negative) 12/11/17 00:03 Urine WBC (Auto) 24.0 /HPF (0.0-6.0) H 12/11/17 00:03 Urine RBC (Auto) 31.0 /HPF (0.0-6.0) 12/11/17 00:03 U Epithel Cells (Auto) 3.0 /HPF (0-13.0) 12/11/17 00:03 Urine Bacteria (Auto) 2+ /HPF (Negative) 12/11/17 00:03 Urine Mucus Few /HPF 12/11/17 00:03 Urine Trichomonas Present /HPF 12/11/17 00:03 Urine Yeast (Budding) Not Reportable 12/11/17 00:03 Urine Opiates Screen Presumptive negative 12/11/17 00:03 Urine Methadone Screen Presumptive negative 12/11/17 00:03 Ur Barbiturates Screen Presumptive negative 12/11/17 00:03 Ur Phencyclidine Scrn Presumptive negative 12/11/17 00:03 Ur Amphetamines Screen Presumptive negative 12/11/17 00:03 U Benzodiazepines Scrn Presumptive positive 12/11/17 00:03 Urine Cocaine Screen Presumptive negative 12/11/17 00:03 U Marijuana (THC) Screen Presumptive negative 12/11/17 00:03 Drugs of Abuse Note Disclamer 12/11/17 00:03
[2017-12-12] MEDS ORDERED: GARAMYCIN/NS 80 MG/100 ML 100 ML IV SCH ×2 (18:00→20:00)
[2017-12-12] MEDS: LOPRESSOR PO SCH ×2 (18:26→21:55)
[2017-12-12] MEDS: VANCOMYCIN 1,250 MG in NACL 0.9% 250ML 250 ML IV SCH ×2 (18:27→21:55)
[2017-12-12] MEDS: SODIUM CHLORIDE FLUSH SYRINGE 10 ML IV SCH ×2 (18:27→21:56)
--- NOTE | 2017-12-12 21:29 | Treadmill Report ---
NUCLEAR PERFUSION STUDY REASON FOR STUDY: Abnormal troponin. IMAGING PROTOCOL: Single isotope used. The patient received 10 mCi of Technetium 99m Tetrofosmin for resting image and 28 mCi of Technetium 99m Tetrofosmin for stress imaging. The imaging for the whole procedure was completed 30-90 minutes following the initial injection of Technetium 99m tetrofosmin. The SPECT imaging in the 180 degree arc was performed in the right anterior oblique projection. Computerized reconstruction of the images was performed for analysis. IMAGING RESULTS: Normal cavity size from stress to rest. Normal distribution of the anterior, inferior, septal, lateral regions. There is mild decrease in the inferior apical region seen both stress and rest with gated SPECT, EF 33% with global hypokinesis. The patient infused Lexiscan with no EKG changes. SUMMARY: 1. Negative Lexiscan EKG. 2. No significant stress induced ischemia. 3. There is a fixed inferoapical defect with moderate global hypokinesis. LVEF 33% with normal perfusion anterior, inferior, septal, lateral, and apical regions. JOB# [id number] SID/MARICARMEN
[2017-12-12] MEDS ORDERED: RIFADIN PO SCH (22:00)
[2017-12-13 06:19] LABS: Hematocrit 22.9 % (30.3-42.9); Hemoglobin 7.2 gm/dl (10.1-14.3); Mean Corpuscular HGB Conc 32 % (30-34); Mean Corpuscular Volume 80 fl (79-97); Platelet Count 314 K/mm3 (140-440); Red Blood Count 2.88 M/mm3 (3.65-5.03); Red Cell Distribution Width 17.2 % (13.2-15.2)
[2017-12-13 06:22] LABS: Mean Corpuscular Hemoglobin 25 pg (28-32)
[2017-12-13 06:42] LABS: BUN/Creatinine Ratio 26; Blood Urea Nitrogen 23 mg/dL (7-17); Calcium 7.9 mg/dL (8.4-10.2); Hemolysis Index 0
[2017-12-13 07:20] LABS: Band Neutrophils # (Manual) 0.7 K/mm3; Eosinophils % (Manual) 0 % (0.0-4.3); Total Cells Counted 100
[2017-12-13 07:21] LABS: Anisocytosis 1+; Basophils % (Manual) 0 % (0.0-1.8)
[2017-12-13 07:22] LABS: Hypochromasia 1+
[2017-12-13 07:31] LABS: Erythrocyte Sedimentation Rate 97 mm/Hr (0-20)
[2017-12-13] MEDS: LASIX IV SCH ×2 (08:42→21:05)
[2017-12-13] MEDS: BABY ASPIRIN PO SCH (09:56)
[2017-12-13] MEDS: LOPRESSOR PO SCH ×2 (09:56→21:05)
[2017-12-13] MEDS: VANCOMYCIN 1,250 MG in NACL 0.9% 250ML 250 ML IV SCH ×2 (09:57→21:04)
--- NOTE | 2017-12-13 11:02 | Progress Note ---
Assessment and Plan Assessment and plan: --Endocarditis.[Tricuspid valve], positive staph aureus bacteremia Consult ID, pt on vancomycin, discussed with ID continue vancomycin Repeat blood cultures. --Persistent MRSA; contact isolation, IV vancomycin Supportive care --Acute on chronic systolic congestive heart failure Ejection fraction 30% to 40%, continue anti-failure medications Cardiology following --Non-ST elevation [place]; stress test fixed defect Continue current cardiac medications, cardiology following --Sepsis; Secondary to endocarditis, MRSA bacteremia, continue Vanco follow ID evaluation and recommendations --Anemia; closely monitor H&H and transfuse as needed --Polysubstance abuse; counseling and patient strongly advised to quit recreational drug use --Aortic stenosis; supportive care cardiology following --DVT prophylaxis; Lovenox History Interval history: Patient seen and examined medical records reviewed Patient feels slightly better no new complaints On IV antibiotics, Vital signs reviewed stable Patient's father at the bed side Hospitalist Physical - Constitutional Vitals: Temp Pulse Resp BP Pulse Ox 98.5 F 99 H 18 160/90 100 12/13/17 07:10 12/13/17 09:56 12/13/17 07:10 12/13/17 09:56 12/13/17 10:57 General appearance: Present: no acute distress, well-nourished, other (sleeping) - EENT Eyes: Present: PERRL, EOM intact - Neck Neck: Present: supple, normal ROM - Respiratory Respiratory effort: normal Respiratory: bilateral: diminished, negative: rales, rhonchi, wheezing - Cardiovascular Rhythm: regular Heart Sounds: Present: S1 & S2 - Extremities Extremities: no ischemia, No edema - Abdominal General gastrointestinal: soft, non-tender, non-distended, normal bowel sounds - Integumentary Integumentary: Present: clear, warm - Psychiatric Psychiatric: appropriate mood/affect, cooperative - Neurologic Neurologic: CNII-XII intact, moves all extremities - Allied Health Allied health notes reviewed: nursing Results - Labs CBC & Chem 7: 12/13/17 05:56 12/13/17 05:56 Labs: Laboratory Last Values WBC 14.7 K/mm3 (4.5-11.0) H 12/13/17 05:56 RBC 2.88 M/mm3 (3.65-5.03) L 12/13/17 05:56 Hgb 7.2 gm/dl (10.1-14.3) L 12/13/17 05:56 Hct 22.9 % (30.3-42.9) L 12/13/17 05:56 MCV 80 fl (79-97) 12/13/17 05:56 MCH 25 pg (28-32) L 12/13/17 05:56 MCHC 32 % (30-34) 12/13/17 05:56 RDW 17.2 % (13.2-15.2) H 12/13/17 05:56 Plt Count 314 K/mm3 (140-440) 12/13/17 05:56 Lymph % (Auto) 10.2 % (13.4-35.0) L 12/12/17 05:19 [place] % (Auto) 4.8 % (0.0-7.3) 12/12/17 05:19 Eos % (Auto) 0.2 % (0.0-4.3) 12/12/17 05:19 Baso % (Auto) 0.2 % (0.0-1.8) 12/12/17 05:19 Lymph # 1.7 K/mm3 (1.2-5.4) 12/12/17 05:19 [place] # 0.8 K/mm3 (0.0-0.8) 12/12/17 05:19 Eos # 0.0 K/mm3 (0.0-0.4) 12/12/17 05:19 Baso # 0.0 K/mm3 (0.0-0.1) 12/12/17 05:19 Add Manual Diff Complete 12/13/17 05:56 Total Counted 100 12/13/17 05:56 Seg Neutrophils % 84.6 % (40.0-70.0) H 12/12/17 05:19 Seg Neuts % (Manual) 79.0 % (40.0-70.0) H 12/13/17 05:56 Band Neutrophils % 5.0 % 12/13/17 05:56 Lymphocytes % (Manual) 10.0 % (13.4-35.0) L 12/13/17 05:56 Reactive Lymphs % (Man) 0 % 12/13/17 05:56 Monocytes % (Manual) 6.0 % (0.0-7.3) 12/13/17 05:56 Eosinophils % (Manual) 0 % (0.0-4.3) 12/13/17 05:56 Basophils % (Manual) 0 % (0.0-1.8) 12/13/17 05:56 Metamyelocytes % 0 % 12/13/17 05:56 Myelocytes % 0 % 12/13/17 05:56 Promyelocytes % 0 % 12/13/17 05:56 Blast Cells % 0 % 12/13/17 05:56 Nucleated RBC % Not Reportable 12/13/17 05:56 Seg Neutrophils # 14.1 K/mm3 (1.8-7.7) H 12/12/17 05:19 Seg Neutrophils # Man 11.6 K/mm3 (1.8-7.7) H 12/13/17 05:56 Band Neutrophils # 0.7 K/mm3 12/13/17 05:56 Lymphocytes # (Manual) 1.5 K/mm3 (1.2-5.4) 12/13/17 05:56 Abs React Lymphs (Man) 0.0 K/mm3 12/13/17 05:56 Monocytes # (Manual) 0.9 K/mm3 (0.0-0.8) H 12/13/17 05:56 Eosinophils # (Manual) 0.0 K/mm3 (0.0-0.4) 12/13/17 05:56 Basophils # (Manual) 0.0 K/mm3 (0.0-0.1) 12/13/17 05:56 Metamyelocytes # 0.0 K/mm3 12/13/17 05:56 Myelocytes # 0.0 K/mm3 12/13/17 05:56 Promyelocytes # 0.0 K/mm3 12/13/17 05:56 Blast Cells # 0.0 K/mm3 12/13/17 05:56 WBC Morphology Not Reportable 12/13/17 05:56 Hypersegmented Neuts Not Reportable 12/13/17 05:56 Hyposegmented Neuts Not Reportable 12/13/17 05:56 Hypogranular Neuts Not Reportable 12/13/17 05:56 Smudge Cells Not Reportable 12/13/17 05:56 Toxic Granulation Not Reportable 12/13/17 05:56 Toxic Vacuolation Not Reportable 12/13/17 05:56 Dohle Bodies Not Reportable 12/13/17 05:56 Pelger-Huet Anomaly Not Reportable 12/13/17 05:56 Adelaida Rods Not Reportable 12/13/17 05:56 Platelet Estimate Appears normal 12/13/17 05:56 Clumped Platelets Not Reportable 12/13/17 05:56 Plt Clumps, EDTA Not Reportable 12/13/17 05:56 Large Platelets Not Reportable 12/13/17 05:56 Giant Platelets Not Reportable 12/13/17 05:56 Platelet Satelliting Not Reportable 12/13/17 05:56 Plt Morphology Comment Not Reportable 12/13/17 05:56 RBC Morphology Not Reportable 12/13/17 05:56 Dimorphic RBCs Not Reportable 12/13/17 05:56 Polychromasia Few 12/13/17 05:56 Hypochromasia 1+ 12/13/17 05:56 Poikilocytosis Not Reportable 12/13/17 05:56 Anisocytosis 1+ 12/13/17 05:56 Microcytosis Not Reportable 12/13/17 05:56 Macrocytosis Not Reportable 12/13/17 05:56 Spherocytes Not Reportable 12/13/17 05:56 Pappenheimer Bodies Not Reportable 12/13/17 05:56 Sickle Cells Not Reportable 12/13/17 05:56 Target Cells Not Reportable 12/13/17 05:56 Tear Drop Cells Not Reportable 12/13/17 05:56 Ovalocytes Not Reportable 12/13/17 05:56 Stomatocytes Few 12/10/17 23:17 Helmet Cells Not Reportable 12/13/17 05:56 [place] Bodies Not Reportable 12/13/17 05:56 [place] Rings Not Reportable 12/13/17 05:56 Concepcion Cells Not Reportable 12/13/17 05:56 Bite Cells Not Reportable 12/13/17 05:56 Crenated Cell Not Reportable 12/13/17 05:56 Elliptocytes Few 12/13/17 05:56 Acanthocytes (Spur) Not Reportable 12/13/17 05:56 Rouleaux Not Reportable 12/13/17 05:56 Hemoglobin C Crystals Not Reportable 12/13/17 05:56 Schistocytes Not Reportable 12/13/17 05:56 Malaria parasites Not Reportable 12/13/17 05:56 ESR 97 mm/Hr (0-20) 12/13/17 05:56 Slim Bodies Not Reportable 12/13/17 05:56 Hem Pathologist Commnt No 12/13/17 05:56 PT 14.2 Sec. (12.2-14.9) 12/10/17 23:17 INR 1.05 (0.87-1.13) 12/10/17 23:17 APTT 31.7 Sec. (24.2-36.6) 12/10/17 23:17 D-Dimer 4736.01 ng/mlDDU (0-234) H 12/10/17 23:17 Heparin Anti-Xa Level 0.14 U.I./ml (0.3-0.7) L 12/12/17 11:17 POC ABG pH 7.399 (7.35-7.45) 12/10/17 22:57 POC ABG pCO2 30.9 (35-45) L 12/10/17 22:57 POC ABG pO2 127 (80-105) H 12/10/17 22:57 POC ABG HCO3 19.1 12/10/17 22:57 POC ABG Total CO2 20 12/10/17 22:57 POC ABG O2 Sat 99 12/10/17 22:57 POC ABG Base Excess -6 12/10/17 22:57 FiO2 100 % 12/10/17 22:57 Sodium 141 mmol/L (137-145) 12/13/17 05:56 Potassium 4.0 mmol/L (3.6-5.0) 12/13/17 05:56 Chloride 99.5 mmol/L (98-107) 12/13/17 05:56 Carbon Dioxide 29 mmol/L (22-30) 12/13/17 05:56 Anion Gap 17 mmol/L 12/13/17 05:56 BUN 23 mg/dL (7-17) H 12/13/17 05:56 Creatinine 0.9 mg/dL (0.7-1.2) 12/13/17 05:56 Estimated GFR > 60 ml/min 12/13/17 05:56 BUN/Creatinine Ratio 26 % 12/13/17 05:56 Glucose 97 mg/dL (65-100) 12/13/17 05:56 Calcium 7.9 mg/dL (8.4-10.2) L 12/13/17 05:56 Total Bilirubin 0.50 mg/dL (0.1-1.2) 12/10/17 23:17 AST 39 units/L (5-40) 12/10/17 23:17 ALT 28 units/L (7-56) 12/10/17 23:17 Alkaline Phosphatase 142 units/L (35-129) H 12/10/17 23:17 Total Creatine Kinase 95 units/L (30-135) 12/11/17 14:09 CK-MB (CK-2) 10.7 ng/mL (0.0-4.0) H 12/11/17 14:09 CK-MB (CK-2) Rel Index 11.2 (0-4) H 12/11/17 14:09 Troponin T 1.570 ng/mL (0.00-0.029) H* 12/11/17 14:09 C-Reactive Protein 9.80 mg/dL (0.00-1.30) H 12/13/17 05:56 NT-Pro-B Natriuret Pep 11240 pg/mL (0-450) H 12/10/17 23:17 Total Protein 7.0 g/dL (6.3-8.2) 12/10/17 23:17 Albumin 3.2 g/dL (3.9-5) L 12/10/17 23:17 Albumin/Globulin Ratio 0.8 % 12/10/17 23:17 Triglycerides 105 mg/dL (2-149) 12/10/17 23:17 Cholesterol 112 mg/dL (50-199) 12/10/17 23:17 LDL Cholesterol Direct 61 mg/dL (50-130) 12/10/17 23:17 HDL Cholesterol 29 mg/dL (40-59) L 12/10/17 23:17 Cholesterol/HDL Ratio 3.86 % 12/10/17 23:17 HCG, Qual Negative (Negative) 12/10/17 23:17 Urine Color Yellow (Yellow) 12/11/17 00:03 Urine Turbidity Hazy (Clear) 12/11/17 00:03 Urine pH 6.0 (5.0-7.0) 12/11/17 00:03 Ur Specific [place] 1.010 (1.003-1.030) 12/11/17 00:03 Urine Protein 100 mg/dl mg/dL (Negative) 12/11/17 00:03 Urine Glucose (UA) 50 mg/dL (Negative) 12/11/17 00:03 Urine Ketones Neg mg/dL (Negative) 12/11/17 00:03 Urine Blood Mod (Negative) 12/11/17 00:03 Urine Nitrite Neg (Negative) 12/11/17 00:03 Urine Bilirubin Neg (Negative) 12/11/17 00:03 Urine Urobilinogen 2.0 mg/dL (<2.0) 12/11/17 00:03 Ur Leukocyte Esterase Mod (Negative) 12/11/17 00:03 Urine WBC (Auto) 24.0 /HPF (0.0-6.0) H 12/11/17 00:03 Urine RBC (Auto) 31.0 /HPF (0.0-6.0) 12/11/17 00:03 U Epithel Cells (Auto) 3.0 /HPF (0-13.0) 12/11/17 00:03 Urine Bacteria (Auto) 2+ /HPF (Negative) 12/11/17 00:03 Urine Mucus Few /HPF 12/11/17 00:03 Urine Trichomonas Present /HPF 12/11/17 00:03 Urine Yeast (Budding) Not Reportable 12/11/17 00:03 Urine Opiates Screen Presumptive negative 12/11/17 00:03 Urine Methadone Screen Presumptive negative 12/11/17 00:03 Ur Barbiturates Screen Presumptive negative 12/11/17 00:03 Ur Phencyclidine Scrn Presumptive negative 12/11/17 00:03 Ur Amphetamines Screen Presumptive negative 12/11/17 00:03 U Benzodiazepines Scrn Presumptive positive 12/11/17 00:03 Urine Cocaine Screen Presumptive negative 12/11/17 00:03 U Marijuana (THC) Screen Presumptive negative 12/11/17 00:03 Drugs of Abuse Note Disclamer 12/11/17 00:03
[2017-12-13] MEDS: XANAX PO PRN ×2 (12:12→21:06)
[2017-12-13] MEDS: SODIUM CHLORIDE FLUSH SYRINGE 10 ML IV SCH ×2 (12:13→21:07)
--- NOTE | 2017-12-13 14:22 | Progress Note ---
Assessment and Plan To continue current management. I.D consult pending. Will follow. - Patient Problems (1) Anemia Current Visit: Yes Status: Acute (2) CHF (congestive heart failure) Current Visit: Yes Status: Acute Qualifiers: Heart failure type: unspecified Heart failure chronicity: acute Qualified Code(s): I50.9 - Heart failure, unspecified (3) Cardiomyopathy Current Visit: Yes Status: Chronic (4) Endocarditis of tricuspid valve Current Visit: Yes Status: Acute (5) MRSA bacteremia Current Visit: Yes Status: Acute (6) NSTEMI (non-ST elevated myocardial infarction) Current Visit: Yes Status: Acute (7) Sepsis Current Visit: Yes Status: Acute (8) Aortic stenosis Current Visit: Yes Status: Chronic (9) Mitral regurgitation Current Visit: Yes Status: Chronic (10) Polysubstance abuse Current Visit: Yes Status: Chronic Subjective Date of service: 12/13/17 Principal diagnosis: HF; sepsis Objective Vital Signs Temp Temp Pulse Pulse Pulse Pulse Pulse 12/13/17 11:26 98.6 F 99 H 12/13/17 10:57 12/13/17 10:00 96 H 12/13/17 09:56 99 H 12/13/17 07:10 98.5 F 99 H 12/13/17 05:38 97.8 F 104 H 12/13/17 00:39 98.0 F 101 H 12/12/17 22:25 109 H 109 H 12/12/17 21:55 109 H 12/12/17 21:14 109 H 12/12/17 20:36 121 H 12/12/17 19:15 126 H 12/12/17 16:00 98 H 12/12/17 15:55 94 H 12/12/17 15:50 93 H 12/12/17 15:45 99.3 F 94 H 12/12/17 15:40 95 H 12/12/17 15:35 98 H 12/12/17 15:30 101 H 12/12/17 15:25 105 H 12/12/17 15:19 119 H Resp Resp Resp BP BP BP Pulse Ox 12/13/17 11:26 16 128/78 82 L 12/13/17 10:57 100 12/13/17 10:00 12/13/17 09:56 160/90 12/13/17 07:10 18 160/90 100 12/13/17 05:38 16 147/91 97 12/13/17 00:39 24 149/85 99 12/12/17 22:25 25 H 99 12/12/17 21:55 162/94 12/12/17 21:14 23 99 12/12/17 20:36 24 162/94 93 12/12/17 19:15 12/12/17 16:00 25 H 127/75 12/12/17 15:55 23 124/73 12/12/17 15:50 21 130/74 12/12/17 15:45 20 114/69 12/12/17 15:40 22 108/64 12/12/17 15:35 20 117/68 12/12/17 15:30 26 H 129/70 12/12/17 15:25 25 H 153/87 12/12/17 15:19 27 H 156/84 Pulse Ox Pulse Ox 12/13/17 11:26 12/13/17 10:57 12/13/17 10:00 12/13/17 09:56 12/13/17 07:10 12/13/17 05:38 12/13/17 00:39 12/12/17 22:25 12/12/17 21:55 12/12/17 21:14 12/12/17 20:36 12/12/17 19:15 12/12/17 16:00 98 12/12/17 15:55 98 12/12/17 15:50 100 12/12/17 15:45 95 12/12/17 15:40 97 12/12/17 15:35 87 12/12/17 15:30 95 12/12/17 15:25 97 12/12/17 15:19 97 - Physical Examination General: No Apparent Distress HEENT: Positive: PERRL, Normocephaly, Mucus Membranes Moist Neck: Positive: neck supple, trachea midline Cardiac: Positive: Reg Rate and Rhythm Lungs: Positive: clear to auscultation, Normal Breath Sounds Neuro: Positive: Grossly Intact Abdomen: Positive: Soft. Negative: Tender Skin: Positive: Clear. Negative: Rash, Wound Musculoskeletal: No Pain, Normal Range of Motion Extremities: Absent: edema - Labs and Meds CBC 12/13/17 Range/Units 05:56 WBC 14.7 H (4.5-11.0) K/mm3 RBC 2.88 L (3.65-5.03) M/mm3 Hgb 7.2 L (10.1-14.3) gm/dl Hct 22.9 L (30.3-42.9) % Plt Count 314 (140-440) K/mm3 Comprehensive Metabolic Panel 12/13/17 Range/Units 05:56 Sodium 141 (137-145) mmol/L Potassium 4.0 (3.6-5.0) mmol/L Chloride 99.5 (98-107) mmol/L Carbon Dioxide 29 (22-30) mmol/L BUN 23 H (7-17) mg/dL Creatinine 0.9 (0.7-1.2) mg/dL Glucose 97 (65-100) mg/dL Calcium 7.9 L (8.4-10.2) mg/dL - Imaging and Cardiology EKG: report reviewed, image reviewed Echo: report reviewed LIZZ: report reviewed - Telemetry EKG Rhythm: Sinus Rhythm - EKG Sinus rhythms and dysrhythmias: sinus rhythm (``) Chamber hypertrophy or enlargement: left atrial enlargement
[2017-12-13] MEDS: LOVENOX SUB-Q SCH (21:04)
[2017-12-14] MEDS: XANAX PO PRN ×3 (02:43→21:10)
[2017-12-14] MEDS: LASIX IV SCH ×2 (08:49→21:10)
--- NOTE | 2017-12-14 09:50 | Progress Note ---
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 Persistent positive MRSA cultures ,, Consult ID, pt on vancomycin, I discussed with ID Dr. Riley over the phone continue vancomycin, Repeat blood cultures. --Persistent MRSA; contact isolation, IV vancomycin Supportive care --Acute on chronic systolic congestive heart failure Ejection fraction 30% to 40%, continue anti-failure medications Cardiology following --Non-ST elevation DC; stress test fixed defect Continue current cardiac medications, cardiology following --Sepsis; Secondary to endocarditis, MRSA bacteremia, continue Vanco follow ID evaluation and recommendations --Anemia; closely monitor H&H and transfuse as needed --Polysubstance abuse; counseling and patient strongly advised to quit recreational drug use --Aortic stenosis; supportive care cardiology following --DVT prophylaxis; Lovenox History Interval history: Patient seen and examined medical records reviewed No new events reported by the nursing Patient is afebrile, receiving IV vancomycin for persistent MRSA as well as tricuspid endocarditis Discussed with ID and Dr. Riley over the phone, recommend continue vancomycin at this point Patient feels slightly better however wants to go home Risks and consequences of going AGAINST MEDICAL ADVICE not completing the treatment were discussed with the patient Verbalized understanding Hospitalist Physical - Constitutional Vitals: Temp Pulse Resp BP Pulse Ox 97.3 F L 94 H 18 146/78 98 12/14/17 05:33 12/14/17 05:33 12/14/17 05:33 12/14/17 05:33 12/14/17 05:33 General appearance: Present: no acute distress, well-nourished, other (sleeping) - EENT Eyes: Present: PERRL, EOM intact - Neck Neck: Present: supple, normal ROM - Respiratory Respiratory effort: normal Respiratory: bilateral: diminished, negative: rales, rhonchi, wheezing - Cardiovascular Rhythm: regular Heart Sounds: Present: S1 & S2 - Extremities Extremities: no ischemia, pulses intact, pulses symmetrical - Abdominal General gastrointestinal: soft, non-tender, non-distended, normal bowel sounds - Integumentary Integumentary: Present: clear, warm - Psychiatric Psychiatric: appropriate mood/affect, cooperative - Neurologic Neurologic: CNII-XII intact, moves all extremities Results - Labs CBC & Chem 7: 12/14/17 09:29 12/13/17 05:56 Labs: Laboratory Last Values WBC 14.7 K/mm3 (4.5-11.0) H 12/13/17 05:56 RBC 2.88 M/mm3 (3.65-5.03) L 12/13/17 05:56 Hgb 7.2 gm/dl (10.1-14.3) L 12/13/17 05:56 Hct 22.9 % (30.3-42.9) L 12/13/17 05:56 MCV 80 fl (79-97) 12/13/17 05:56 MCH 25 pg (28-32) L 12/13/17 05:56 MCHC 32 % (30-34) 12/13/17 05:56 RDW 17.2 % (13.2-15.2) H 12/13/17 05:56 Plt Count 314 K/mm3 (140-440) 12/13/17 05:56 Lymph % (Auto) 10.2 % (13.4-35.0) L 12/12/17 05:19 Morgan % (Auto) 4.8 % (0.0-7.3) 12/12/17 05:19 Eos % (Auto) 0.2 % (0.0-4.3) 12/12/17 05:19 Baso % (Auto) 0.2 % (0.0-1.8) 12/12/17 05:19 Lymph # 1.7 K/mm3 (1.2-5.4) 12/12/17 05:19 Morgan # 0.8 K/mm3 (0.0-0.8) 12/12/17 05:19 Eos # 0.0 K/mm3 (0.0-0.4) 12/12/17 05:19 Baso # 0.0 K/mm3 (0.0-0.1) 12/12/17 05:19 Add Manual Diff Complete 12/13/17 05:56 Total Counted 100 12/13/17 05:56 Seg Neutrophils % 84.6 % (40.0-70.0) H 12/12/17 05:19 Seg Neuts % (Manual) 79.0 % (40.0-70.0) H 12/13/17 05:56 Band Neutrophils % 5.0 % 12/13/17 05:56 Lymphocytes % (Manual) 10.0 % (13.4-35.0) L 12/13/17 05:56 Reactive Lymphs % (Man) 0 % 12/13/17 05:56 Monocytes % (Manual) 6.0 % (0.0-7.3) 12/13/17 05:56 Eosinophils % (Manual) 0 % (0.0-4.3) 12/13/17 05:56 Basophils % (Manual) 0 % (0.0-1.8) 12/13/17 05:56 Metamyelocytes % 0 % 12/13/17 05:56 Myelocytes % 0 % 12/13/17 05:56 Promyelocytes % 0 % 12/13/17 05:56 Blast Cells % 0 % 12/13/17 05:56 Nucleated RBC % Not Reportable 12/13/17 05:56 Seg Neutrophils # 14.1 K/mm3 (1.8-7.7) H 12/12/17 05:19 Seg Neutrophils # Man 11.6 K/mm3 (1.8-7.7) H 12/13/17 05:56 Band Neutrophils # 0.7 K/mm3 12/13/17 05:56 Lymphocytes # (Manual) 1.5 K/mm3 (1.2-5.4) 12/13/17 05:56 Abs React Lymphs (Man) 0.0 K/mm3 12/13/17 05:56 Monocytes # (Manual) 0.9 K/mm3 (0.0-0.8) H 12/13/17 05:56 Eosinophils # (Manual) 0.0 K/mm3 (0.0-0.4) 12/13/17 05:56 Basophils # (Manual) 0.0 K/mm3 (0.0-0.1) 12/13/17 05:56 Metamyelocytes # 0.0 K/mm3 12/13/17 05:56 Myelocytes # 0.0 K/mm3 12/13/17 05:56 Promyelocytes # 0.0 K/mm3 12/13/17 05:56 Blast Cells # 0.0 K/mm3 12/13/17 05:56 WBC Morphology Not Reportable 12/13/17 05:56 Hypersegmented Neuts Not Reportable 12/13/17 05:56 Hyposegmented Neuts Not Reportable 12/13/17 05:56 Hypogranular Neuts Not Reportable 12/13/17 05:56 Smudge Cells Not Reportable 12/13/17 05:56 Toxic Granulation Not Reportable 12/13/17 05:56 Toxic Vacuolation Not Reportable 12/13/17 05:56 Dohle Bodies Not Reportable 12/13/17 05:56 Pelger-Huet Anomaly Not Reportable 12/13/17 05:56 Adelaida Rods Not Reportable 12/13/17 05:56 Platelet Estimate Appears normal 12/13/17 05:56 Clumped Platelets Not Reportable 12/13/17 05:56 Plt Clumps, EDTA Not Reportable 12/13/17 05:56 Large Platelets Not Reportable 12/13/17 05:56 Giant Platelets Not Reportable 12/13/17 05:56 Platelet Satelliting Not Reportable 12/13/17 05:56 Plt Morphology Comment Not Reportable 12/13/17 05:56 RBC Morphology Not Reportable 12/13/17 05:56 Dimorphic RBCs Not Reportable 12/13/17 05:56 Polychromasia Few 12/13/17 05:56 Hypochromasia 1+ 12/13/17 05:56 Poikilocytosis Not Reportable 12/13/17 05:56 Anisocytosis 1+ 12/13/17 05:56 Microcytosis Not Reportable 12/13/17 05:56 Macrocytosis Not Reportable 12/13/17 05:56 Spherocytes Not Reportable 12/13/17 05:56 Pappenheimer Bodies Not Reportable 12/13/17 05:56 Sickle Cells Not Reportable 12/13/17 05:56 Target Cells Not Reportable 12/13/17 05:56 Tear Drop Cells Not Reportable 12/13/17 05:56 Ovalocytes Not Reportable 12/13/17 05:56 Stomatocytes Few 12/10/17 23:17 Helmet Cells Not Reportable 12/13/17 05:56 Peguero-Salmon Bodies Not Reportable 12/13/17 05:56 Hobbs Rings Not Reportable 12/13/17 05:56 Lind Cells Not Reportable 12/13/17 05:56 Bite Cells Not Reportable 12/13/17 05:56 Crenated Cell Not Reportable 12/13/17 05:56 Elliptocytes Few 12/13/17 05:56 Acanthocytes (Spur) Not Reportable 12/13/17 05:56 Rouleaux Not Reportable 12/13/17 05:56 Hemoglobin C Crystals Not Reportable 12/13/17 05:56 Schistocytes Not Reportable 12/13/17 05:56 Malaria parasites Not Reportable 12/13/17 05:56 ESR 97 mm/Hr (0-20) 12/13/17 05:56 Slim Bodies Not Reportable 12/13/17 05:56 Hem Pathologist Commnt No 12/13/17 05:56 PT 14.2 Sec. (12.2-14.9) 12/10/17 23:17 INR 1.05 (0.87-1.13) 12/10/17 23:17 APTT 31.7 Sec. (24.2-36.6) 12/10/17 23:17 D-Dimer 4736.01 ng/mlDDU (0-234) H 12/10/17 23:17 Heparin Anti-Xa Level 0.14 U.I./ml (0.3-0.7) L 12/12/17 11:17 POC ABG pH 7.399 (7.35-7.45) 12/10/17 22:57 POC ABG pCO2 30.9 (35-45) L 12/10/17 22:57 POC ABG pO2 127 (80-105) H 12/10/17 22:57 POC ABG HCO3 19.1 12/10/17 22:57 POC ABG Total CO2 20 12/10/17 22:57 POC ABG O2 Sat 99 12/10/17 22:57 POC ABG Base Excess -6 12/10/17 22:57 FiO2 100 % 12/10/17 22:57 Sodium 141 mmol/L (137-145) 12/13/17 05:56 Potassium 4.0 mmol/L (3.6-5.0) 12/13/17 05:56 Chloride 99.5 mmol/L (98-107) 12/13/17 05:56 Carbon Dioxide 29 mmol/L (22-30) 12/13/17 05:56 Anion Gap 17 mmol/L 12/13/17 05:56 BUN 23 mg/dL (7-17) H 12/13/17 05:56 Creatinine 0.9 mg/dL (0.7-1.2) 12/13/17 05:56 Estimated GFR > 60 ml/min 12/13/17 05:56 BUN/Creatinine Ratio 26 % 12/13/17 05:56 Glucose 97 mg/dL (65-100) 12/13/17 05:56 Calcium 7.9 mg/dL (8.4-10.2) L 12/13/17 05:56 Total Bilirubin 0.50 mg/dL (0.1-1.2) 12/10/17 23:17 AST 39 units/L (5-40) 12/10/17 23:17 ALT 28 units/L (7-56) 12/10/17 23:17 Alkaline Phosphatase 142 units/L (35-129) H 12/10/17 23:17 Total Creatine Kinase 95 units/L (30-135) 12/11/17 14:09 CK-MB (CK-2) 10.7 ng/mL (0.0-4.0) H 12/11/17 14:09 CK-MB (CK-2) Rel Index 11.2 (0-4) H 12/11/17 14:09 Troponin T 1.570 ng/mL (0.00-0.029) H* 12/11/17 14:09 C-Reactive Protein 9.80 mg/dL (0.00-1.30) H 12/13/17 05:56 NT-Pro-B Natriuret Pep 79665 pg/mL (0-450) H 12/10/17 23:17 Total Protein 7.0 g/dL (6.3-8.2) 12/10/17 23:17 Albumin 3.2 g/dL (3.9-5) L 12/10/17 23:17 Albumin/Globulin Ratio 0.8 % 12/10/17 23:17 Triglycerides 105 mg/dL (2-149) 12/10/17 23:17 Cholesterol 112 mg/dL (50-199) 12/10/17 23:17 LDL Cholesterol Direct 61 mg/dL (50-130) 12/10/17 23:17 HDL Cholesterol 29 mg/dL (40-59) L 12/10/17 23:17 Cholesterol/HDL Ratio 3.86 % 12/10/17 23:17 HCG, Qual Negative (Negative) 12/10/17 23:17 Urine Color Yellow (Yellow) 12/11/17 00:03 Urine Turbidity Hazy (Clear) 12/11/17 00:03 Urine pH 6.0 (5.0-7.0) 12/11/17 00:03 Ur Specific [place] 1.010 (1.003-1.030) 12/11/17 00:03 Urine Protein 100 mg/dl mg/dL (Negative) 12/11/17 00:03 Urine Glucose (UA) 50 mg/dL (Negative) 12/11/17 00:03 Urine Ketones Neg mg/dL (Negative) 12/11/17 00:03 Urine Blood Mod (Negative) 12/11/17 00:03 Urine Nitrite Neg (Negative) 12/11/17 00:03 Urine Bilirubin Neg (Negative) 12/11/17 00:03 Urine Urobilinogen 2.0 mg/dL (<2.0) 12/11/17 00:03 Ur Leukocyte Esterase Mod (Negative) 12/11/17 00:03 Urine WBC (Auto) 24.0 /HPF (0.0-6.0) H 12/11/17 00:03 Urine RBC (Auto) 31.0 /HPF (0.0-6.0) 12/11/17 00:03 U Epithel Cells (Auto) 3.0 /HPF (0-13.0) 12/11/17 00:03 Urine Bacteria (Auto) 2+ /HPF (Negative) 12/11/17 00:03 Urine Mucus Few /HPF 12/11/17 00:03 Urine Trichomonas Present /HPF 12/11/17 00:03 Urine Yeast (Budding) Not Reportable 12/11/17 00:03 Vancomycin Trough 25.2 ug/mL (5.0-20.0) H 12/13/17 20:33 Urine Opiates Screen Presumptive negative 12/11/17 00:03 Urine Methadone Screen Presumptive negative 12/11/17 00:03 Ur Barbiturates Screen Presumptive negative 12/11/17 00:03 Ur Phencyclidine Scrn Presumptive negative 12/11/17 00:03 Ur Amphetamines Screen Presumptive negative 12/11/17 00:03 U Benzodiazepines Scrn Presumptive positive 12/11/17 00:03 Urine Cocaine Screen Presumptive negative 12/11/17 00:03 U Marijuana (THC) Screen Presumptive negative 07/05/18 00:03 Drugs of Abuse Note Disclamer 12/11/17 00:03
[2017-12-14 10:57] LABS: Basophils # (Auto) 0.1 K/mm3 (0.0-0.1); Basophils % (Auto) 0.3 % (0.0-1.8); Eosinophils # (Auto) 0.1 K/mm3 (0.0-0.4); Eosinophils % (Auto) 0.8 % (0.0-4.3); Hematocrit 29.4 % (30.3-42.9); Hemoglobin 9.3 gm/dl (10.1-14.3); Lymphocytes # (Auto) 1.2 K/mm3 (1.2-5.4); Lymphocytes % (Auto) 7.9 % (13.4-35.0); Mean Corpuscular HGB Conc 32 % (30-34); Mean Corpuscular Volume 81 fl (79-97); Monocytes # (Auto) 0.6 K/mm3 (0.0-0.8); Monocytes % (Auto) 3.5 % (0.0-7.3); Platelet Count 415 K/mm3 (140-440); Red Blood Count 3.63 M/mm3 (3.65-5.03); Red Cell Distribution Width 17.3 % (13.2-15.2)
[2017-12-14] MEDS: LOPRESSOR PO SCH ×2 (11:29→21:12)
[2017-12-14] MEDS: BABY ASPIRIN PO SCH (11:29)
[2017-12-14 11:35] LABS: Mean Corpuscular Hemoglobin 26 pg (28-32)
--- NOTE | 2017-12-14 16:03 | Progress Note ---
Assessment and Plan Present management. IVABs as per I.D.'s recommendations.Will follow. - Patient Problems (1) Anemia Current Visit: Yes Status: Acute (2) CHF (congestive heart failure) Current Visit: Yes Status: Acute Qualifiers: Heart failure type: unspecified Heart failure chronicity: acute Qualified Code(s): I50.9 - Heart failure, unspecified (3) Cardiomyopathy Current Visit: Yes Status: Chronic (4) Endocarditis of tricuspid valve Current Visit: Yes Status: Acute (5) MRSA bacteremia Current Visit: Yes Status: Acute (6) NSTEMI (non-ST elevated myocardial infarction) Current Visit: Yes Status: Acute (7) Sepsis Current Visit: Yes Status: Acute (8) Aortic stenosis Current Visit: Yes Status: Chronic (9) Mitral regurgitation Current Visit: Yes Status: Chronic (10) Polysubstance abuse Current Visit: Yes Status: Chronic Subjective Date of service: 12/14/17 Principal diagnosis: HF; sepsis Interval history: Feels much better today. Staph aureus bacteremia with tricuspid valve endocarditis. On IV Vancomycin.WBC 15.7, Hb 9.3. Objective Vital Signs Temp Pulse Resp BP Pulse Ox 12/14/17 05:33 97.3 F L 94 H 18 146/78 98 12/14/17 04:00 100 H 12/13/17 23:44 98.6 F 99 H 18 140/85 92 12/13/17 22:11 100 H 18 100 12/13/17 21:16 95 12/13/17 20:25 98.7 F 102 H 20 152/82 93 - Physical Examination General: No Apparent Distress HEENT: Positive: PERRL, Normocephaly, Mucus Membranes Moist Neck: Positive: neck supple, trachea midline Cardiac: Positive: Reg Rate and Rhythm Lungs: Positive: Normal Exam, clear to auscultation, Normal Breath Sounds Neuro: Positive: Grossly Intact Abdomen: Positive: Soft. Negative: Tender Skin: Positive: Clear. Negative: Rash, Wound Musculoskeletal: No Pain, Normal Range of Motion Extremities: Present: upper extr. pulses, lower extr. pulses. Absent: edema - Labs and Meds CBC 12/14/17 Range/Units 09:29 WBC 15.7 H (4.5-11.0) K/mm3 RBC 3.63 L (3.65-5.03) M/mm3 Hgb 9.3 L (10.1-14.3) gm/dl Hct 29.4 L D (30.3-42.9) % Plt Count 415 (140-440) K/mm3 Lymph # 1.2 (1.2-5.4) K/mm3 [place] # 0.6 (0.0-0.8) K/mm3 Eos # 0.1 (0.0-0.4) K/mm3 Baso # 0.1 (0.0-0.1) K/mm3 - Imaging and Cardiology EKG: report reviewed, image reviewed Echo: report reviewed - Telemetry EKG Rhythm: Sinus Rhythm - EKG Sinus rhythms and dysrhythmias: sinus rhythm (``) Chamber hypertrophy or enlargement: left atrial enlargement
[2017-12-14] MEDS: VANCOMYCIN 1,250 MG in NACL 0.9% 250ML 250 ML IV SCH (20:56)
[2017-12-14] MEDS: SODIUM CHLORIDE FLUSH SYRINGE 10 ML IV SCH ×2 (20:57→21:13)
[2017-12-14] MEDS: LOVENOX SUB-Q SCH (21:10)
[2017-12-14] MEDS: VANCOMYCIN/NS 1 GM/250 ML 1 GM/250 ML BAG IV SCH (21:11)
[2017-12-15 05:50] LABS: Basophils # (Auto) 0.1 K/mm3 (0.0-0.1); Basophils % (Auto) 0.4 % (0.0-1.8); Eosinophils # (Auto) 0.2 K/mm3 (0.0-0.4); Eosinophils % (Auto) 1.4 % (0.0-4.3); Hematocrit 26.1 % (30.3-42.9); Hemoglobin 8.3 gm/dl (10.1-14.3); Lymphocytes # (Auto) 1.9 K/mm3 (1.2-5.4); Lymphocytes % (Auto) 14.8 % (13.4-35.0); Mean Corpuscular HGB Conc 32 % (30-34); Mean Corpuscular Volume 81 fl (79-97); Monocytes # (Auto) 0.6 K/mm3 (0.0-0.8); Monocytes % (Auto) 4.7 % (0.0-7.3); Platelet Count 393 K/mm3 (140-440); Red Blood Count 3.21 M/mm3 (3.65-5.03); Red Cell Distribution Width 16.9 % (13.2-15.2)
[2017-12-15 05:52] LABS: Mean Corpuscular Hemoglobin 26 pg (28-32)
[2017-12-15] MEDS: XANAX PO PRN ×2 (06:07→15:07)
[2017-12-15 06:15] LABS: Alanine Aminotransferase 53 units/L (7-56); Albumin 2.8 g/dL (3.9-5); BUN/Creatinine Ratio 23; Blood Urea Nitrogen 18 mg/dL (7-17); Calcium 8.2 mg/dL (8.4-10.2); Hemolysis Index 0
[2017-12-15] MEDS: BABY ASPIRIN PO SCH (08:59)
[2017-12-15] MEDS: LASIX IV SCH ×2 (08:59→22:02)
[2017-12-15] MEDS: LOPRESSOR PO SCH ×2 (08:59→22:01)
--- NOTE | 2017-12-15 09:51 | Consultation ---
History of Present Illness - Reason for Consult Consult date: 12/15/17 MRSA septicemia Requesting physician: MARTINA BLACKWELL - History of Present Illness 47 yo female with a history of hypertension, chronic back pains and migraines; initially admitted on 12/01/17 - 12/10/17 (when she left AMA) due to worsening abd pain/back pain, malaise, weakness and a subjective fever. On initial admission temp 101.8, HR 136, R 26, O2 sat 90%, BP 147/83. WBC 15.3. Hg 11.8. Plat 247. Creat 0.8. UA neg. US abd showed Mild gallbladder wall thickening and minimal fluid in the gallbladder fossa. Subtle echogenic foci are seen in the gallbladder which may reflect sludge. CTA chest showed No evidence of pulmonary embolus. Borderline aneurysmal dilatation ascending thoracic aorta. No dissection is seen. Prior granulomatous disease. Possible gallbladder wall thickening or small amount of fluid in the gallbladder fossa. The entire gallbladder is not visualized. HIDA scan normal. pCXR unremarkable. UDS + Amph + marihuana. Her Blood cx 12/01 was positive for MRSA 4 of 4 bottles, then on neg and 12/08 neg. She was started on vanco on 12/02. I saw her for sepsis with persistent fever. Searching for a source TTE showed an EF 35% mod AR/AE. CT lumbar spine w/o cont normal and MRI lumbar and thoracic no abscesses. In light of persistent fever a WBC tagged scan and LIZZ were scheduled. Unfortunately, she left AMA on 12/10. She was constantly anxious c/o feeling trapped and claustrophobic at her room. She was educated about possibility of and permanent consequences from untreated MRSA septicemia, still increasing leukocytosis. At home, she became SOB and felt very sick with fever and decided to come back to the hospital on 12/10. In the ED, temp 98, HR 136, R 25, O2 sat 98 %, BP 163/102. WBC 28.8. Hg 8.2. Plat 325. Bands 13%. BNP 21K. Trop 2.3. UA 24 wbc, LE mod. Creat 0.8. UDS +benzo. CTA no PE, cardiomegaly, pulmonary edema and chapin pleural effusions. Microbiology: Blood cx 12/01 MRSA 4 of 4 bottles Blood cx 12/05 neg Blood cx 12/08 neg Blood cx 12/11 MRSA 2 of 4 bottles - vanco ILENE=2 Abx: Current Antimicrobials: vanco 12/02-12/10 (left AMA) vanco 12/11 Previous Antimicrobials: Past History Past Medical History: other (MRSA septicemia, polysubstance abuse) Past Surgical History: No surgical history Social history: smoking, other (marijuana use, amphetamine use). denies: IV drug use Family history: no significant family history Medications and Allergies Allergies Allergy/AdvReac Type Severity Reaction Status Date / Time No Known Drug Allergies Allergy Unknown Verified 12/15/17 03:15 Home Medications Medication Instructions Recorded Confirmed Last Taken Type Unobtainable 12/10/17 12/10/17 Unknown History Active Meds: Active Medications Acetaminophen (Tylenol) 650 mg PO Q4H PRN PRN Reason: Pain MILD(1-3)/Fever >100.5/WAN Alprazolam (Xanax) 0.25 mg PO Q8H PRN PRN Reason: Anxiety Last Admin: 12/15/17 06:07 Dose: 0.25 mg Aspirin (Baby Aspirin) 81 mg PO QDAY [facility] Last Admin: 12/15/17 08:59 Dose: 81 mg Enoxaparin Sodium (Lovenox) 40 mg SUB-Q QDAY@2200 [facility] Last Admin: 12/14/17 21:10 Dose: 40 mg Furosemide (Lasix) 40 mg IV Q12H [facility] Last Admin: 12/15/17 08:59 Dose: 40 mg Vancomycin HCl (Vancomycin/Ns 1 Gm/250 Ml) 1 gm in 250 mls @ 166.667 mls/hr IV Q12H [facility] Last Admin: 12/14/17 21:11 Dose: 166.667 mls/hr Metoprolol Tartrate (Lopressor) 12.5 mg PO BID [facility] Last Admin: 12/15/17 08:59 Dose: 12.5 mg Ondansetron HCl (Zofran) 4 mg IV Q8H PRN PRN Reason: Nausea And Vomiting Sodium Chloride (Sodium Chloride Flush Syringe 10 Ml) 10 ml IV BID [facility] Last Admin: 12/14/17 21:13 Dose: 10 ml Sodium Chloride (Sodium Chloride Flush Syringe 10 Ml) 10 ml IV PRN PRN PRN Reason: LINE FLUSH Last Admin: 12/11/17 06:31 Dose: 10 ml Vancomycin HCl (Vancomycin Pharmacy To Dose) 1 each IV PKCONSULT [facility] Physical Examination - Physical Exam Narrative exam: General appearance: Alert in NAD, conversant anxious Eyes: anicteric sclerae, moist conjunctivae; no lid-lag; PERRLA HENT: Atraumatic; oropharynx clear with moist mucous membranes and no mucosal ulcerations/no oral thrush; normal hard and soft palate. Normal external ears. Neck: Trachea midline; supple, no thyromegaly or lymphadenopathy Lungs: chapin rales CV: RRR, + murmurs Abdomen: Soft, non-tender; no masses or hepatosplenomegaly Extremities: No peripheral edema or extremity lymphadenopathy Skin: Normal temperature, turgor and texture; no rash, ulcers or subcutaneous nodules Psych: Appropriate affect, alert and oriented to person, place and time. Neuro: alert and oriented x 3. Moving all extermities Lines: No CVL / PICC - Constitutional Vitals: Vital Signs Temp Pulse Resp BP Pulse Ox 98.3 F 89 19 145/82 91 12/15/17 07:58 12/15/17 08:59 12/15/17 08:30 12/15/17 08:59 12/15/17 07:58 Temperature -Last 24 Hours Temperature 98.3 F Temperature 98.6 F Temperature 98.9 F Temperature 98.5 F Temperature 98.6 F Temperature 97.9 F Results - Labs CBC & Chem 7: 12/15/17 05:16 12/15/17 05:16 Labs: Abnormal lab results 12/14/17 12/15/17 12/15/17 Range/Units 09:29 05:16 05:16 WBC 15.7 H 12.7 H (4.5-11.0) K/mm3 RBC 3.63 L 3.21 L (3.65-5.03) M/mm3 Hgb 9.3 L 8.3 L (10.1-14.3) gm/dl Hct 29.4 L D 26.1 L (30.3-42.9) % MCH 26 L 26 L (28-32) pg RDW 17.3 H 16.9 H (13.2-15.2) % Lymph % (Auto) 7.9 L (13.4-35.0) % Seg Neutrophils % 87.5 H 78.7 H (40.0-70.0) % Seg Neutrophils # 13.7 H 10.0 H (1.8-7.7) K/mm3 Potassium 3.3 L (3.6-5.0) mmol/L BUN 18 H (7-17) mg/dL Calcium 8.2 L (8.4-10.2) mg/dL Total Protein 5.9 L (6.3-8.2) g/dL Albumin 2.8 L (3.9-5) g/dL Assessment and Plan Assessment: 1) Sepsis: Present on admission, manifested by tachycardia, leukocytosis, bandemia. Etiology most likely complicated MRSA septicemia. 2) Complicated MRSA bacteremia with TV endocarditis: source ? skin pustules ? IVDU (patient denies) - with persistent fever and patient left AMA on 12/10 -Blood cx 12/01 MRSA 4 of 4 bottles -Blood cx 12/05 neg -Blood cx 12/08 neg -Blood cx 12/11 MRSA 2 of 4 bottles - vanco ILENE=2 -Blood cx 12/12 no growth today -TTE EF 35%, mod AR/AE -CT lumbar spine w/o cont normal -MRI lumbar and thoracic no abscesses -LIZZ large mobile mass at the septal tricuspid valve 1.4x0.8cm 3) CHF exacerbation in the setting acute endocarditis 4) Polysubstance abuse + Amph + marihuana 5) Mild UTI Plan: -in light of vegetation size, CHF, elevated troponins and persistent blood cx despite vancomycin will ask Cards to discuss with CT surgery pt may require valve replacement -may need transfer to tertiary facility -stop vanco -start daptomycin Discussed with Dr Blackwell Thank you for your consultation, will follow up with you. Samanta Marr MD Infectious Diseases Specialist [facility] ([facility] M [phone] O [phone]
[2017-12-15] MEDS: VANCOMYCIN/NS 1 GM/250 ML 1 GM/250 ML BAG IV SCH (10:43)
--- NOTE | 2017-12-15 10:59 | Progress Note ---
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 Persistent positive MRSA cultures , ID following ID changed vancomycin, to daptomycin Follow-up repeat cultures --Persistent MRSA; contact isolation, IV vancomycin Changed to daptomycin --Acute on chronic systolic congestive heart failure Ejection fraction 30% to 40%, continue anti-failure medications Cardiology following --Non-ST elevation [place]; stress test fixed defect Continue current cardiac medications, cardiology following --Sepsis; Secondary to endocarditis, MRSA bacteremia, continue current antibiotics, per ID --Anemia; closely monitor H&H and transfuse as needed --Polysubstance abuse; counseling and patient strongly advised to quit recreational drug use --Aortic stenosis; supportive care cardiology following --Gen. Anxiety; consult psych, Xanax as needed --DVT prophylaxis; Lovenox Consults and recommendations noted and appreciated Plan of care reviewed with the patient and her nurse History Interval history: Patient seen and examined medical records reviewed Patient is very anxious, wants to go home Counseled the importance of her dating to the treatment plan Discussed the case with ID doctor Riley Adjusting antibiotics, patient is afebrile Hospitalist Physical - Constitutional Vitals: Temp Pulse Resp BP Pulse Ox 98.3 F 96 H 19 145/82 91 12/15/17 07:58 12/15/17 10:00 12/15/17 08:30 12/15/17 08:59 12/15/17 07:58 General appearance: Present: no acute distress, well-nourished - EENT Eyes: Present: PERRL, EOM intact - Neck Neck: Present: supple, normal ROM - Respiratory Respiratory effort: normal Respiratory: bilateral: diminished, negative: rales, rhonchi - Cardiovascular Rhythm: regular Heart Sounds: Present: S1 & S2 - Extremities Extremities: no ischemia, No edema - Abdominal General gastrointestinal: soft, non-tender, non-distended, normal bowel sounds - Integumentary Integumentary: Present: clear, warm - Psychiatric Psychiatric: appropriate mood/affect, cooperative - Neurologic Neurologic: CNII-XII intact, moves all extremities Results - Labs CBC & Chem 7: 12/15/17 05:16 12/15/17 05:16 Labs: Laboratory Last Values WBC 12.7 K/mm3 (4.5-11.0) H 12/15/17 05:16 RBC 3.21 M/mm3 (3.65-5.03) L 12/15/17 05:16 Hgb 8.3 gm/dl (10.1-14.3) L 12/15/17 05:16 Hct 26.1 % (30.3-42.9) L 12/15/17 05:16 MCV 81 fl (79-97) 12/15/17 05:16 MCH 26 pg (28-32) L 12/15/17 05:16 MCHC 32 % (30-34) 12/15/17 05:16 RDW 16.9 % (13.2-15.2) H 12/15/17 05:16 Plt Count 393 K/mm3 (140-440) 12/15/17 05:16 Lymph % (Auto) 14.8 % (13.4-35.0) 12/15/17 05:16 [place] % (Auto) 4.7 % (0.0-7.3) 12/15/17 05:16 Eos % (Auto) 1.4 % (0.0-4.3) 12/15/17 05:16 Baso % (Auto) 0.4 % (0.0-1.8) 12/15/17 05:16 Lymph # 1.9 K/mm3 (1.2-5.4) 12/15/17 05:16 [place] # 0.6 K/mm3 (0.0-0.8) 12/15/17 05:16 Eos # 0.2 K/mm3 (0.0-0.4) 12/15/17 05:16 Baso # 0.1 K/mm3 (0.0-0.1) 12/15/17 05:16 Add Manual Diff Complete 12/13/17 05:56 Total Counted 100 12/13/17 05:56 Seg Neutrophils % 78.7 % (40.0-70.0) H 12/15/17 05:16 Seg Neuts % (Manual) 79.0 % (40.0-70.0) H 12/13/17 05:56 Band Neutrophils % 5.0 % 12/13/17 05:56 Lymphocytes % (Manual) 10.0 % (13.4-35.0) L 12/13/17 05:56 Reactive Lymphs % (Man) 0 % 12/13/17 05:56 Monocytes % (Manual) 6.0 % (0.0-7.3) 12/13/17 05:56 Eosinophils % (Manual) 0 % (0.0-4.3) 12/13/17 05:56 Basophils % (Manual) 0 % (0.0-1.8) 12/13/17 05:56 Metamyelocytes % 0 % 12/13/17 05:56 Myelocytes % 0 % 12/13/17 05:56 Promyelocytes % 0 % 12/13/17 05:56 Blast Cells % 0 % 12/13/17 05:56 Nucleated RBC % Not Reportable 12/13/17 05:56 Seg Neutrophils # 10.0 K/mm3 (1.8-7.7) H 12/15/17 05:16 Seg Neutrophils # Man 11.6 K/mm3 (1.8-7.7) H 12/13/17 05:56 Band Neutrophils # 0.7 K/mm3 12/13/17 05:56 Lymphocytes # (Manual) 1.5 K/mm3 (1.2-5.4) 12/13/17 05:56 Abs React Lymphs (Man) 0.0 K/mm3 12/13/17 05:56 Monocytes # (Manual) 0.9 K/mm3 (0.0-0.8) H 12/13/17 05:56 Eosinophils # (Manual) 0.0 K/mm3 (0.0-0.4) 12/13/17 05:56 Basophils # (Manual) 0.0 K/mm3 (0.0-0.1) 12/13/17 05:56 Metamyelocytes # 0.0 K/mm3 12/13/17 05:56 Myelocytes # 0.0 K/mm3 12/13/17 05:56 Promyelocytes # 0.0 K/mm3 12/13/17 05:56 Blast Cells # 0.0 K/mm3 12/13/17 05:56 WBC Morphology Not Reportable 12/13/17 05:56 Hypersegmented Neuts Not Reportable 12/13/17 05:56 Hyposegmented Neuts Not Reportable 12/13/17 05:56 Hypogranular Neuts Not Reportable 12/13/17 05:56 Smudge Cells Not Reportable 12/13/17 05:56 Toxic Granulation Not Reportable 12/13/17 05:56 Toxic Vacuolation Not Reportable 12/13/17 05:56 Dohle Bodies Not Reportable 12/13/17 05:56 Pelger-Huet Anomaly Not Reportable 12/13/17 05:56 Adelaida Rods Not Reportable 12/13/17 05:56 Platelet Estimate Appears normal 12/13/17 05:56 Clumped Platelets Not Reportable 12/13/17 05:56 Plt Clumps, EDTA Not Reportable 12/13/17 05:56 Large Platelets Not Reportable 12/13/17 05:56 Giant Platelets Not Reportable 12/13/17 05:56 Platelet Satelliting Not Reportable 12/13/17 05:56 Plt Morphology Comment Not Reportable 12/13/17 05:56 RBC Morphology Not Reportable 12/13/17 05:56 Dimorphic RBCs Not Reportable 12/13/17 05:56 Polychromasia Few 12/13/17 05:56 Hypochromasia 1+ 12/13/17 05:56 Poikilocytosis Not Reportable 12/13/17 05:56 Anisocytosis 1+ 12/13/17 05:56 Microcytosis Not Reportable 12/13/17 05:56 Macrocytosis Not Reportable 12/13/17 05:56 Spherocytes Not Reportable 12/13/17 05:56 Pappenheimer Bodies Not Reportable 12/13/17 05:56 Sickle Cells Not Reportable 12/13/17 05:56 Target Cells Not Reportable 12/13/17 05:56 Tear Drop Cells Not Reportable 12/13/17 05:56 Ovalocytes Not Reportable 12/13/17 05:56 Stomatocytes Few 12/10/17 23:17 Helmet Cells Not Reportable 12/13/17 05:56 Peguero-[place] Bodies Not Reportable 12/13/17 05:56 [place] Rings Not Reportable 12/13/17 05:56 Embarrass Cells Not Reportable 12/13/17 05:56 Bite Cells Not Reportable 12/13/17 05:56 Crenated Cell Not Reportable 12/13/17 05:56 Elliptocytes Few 12/13/17 05:56 Acanthocytes (Spur) Not Reportable 12/13/17 05:56 Rouleaux Not Reportable 12/13/17 05:56 Hemoglobin C Crystals Not Reportable 12/13/17 05:56 Schistocytes Not Reportable 12/13/17 05:56 Malaria parasites Not Reportable 12/13/17 05:56 ESR 97 mm/Hr (0-20) 12/13/17 05:56 Slim Bodies Not Reportable 12/13/17 05:56 Hem Pathologist Commnt No 12/13/17 05:56 PT 14.2 Sec. (12.2-14.9) 12/10/17 23:17 INR 1.05 (0.87-1.13) 12/10/17 23:17 APTT 31.7 Sec. (24.2-36.6) 12/10/17 23:17 D-Dimer 4736.01 ng/mlDDU (0-234) H 12/10/17 23:17 Heparin Anti-Xa Level 0.14 U.I./ml (0.3-0.7) L 12/12/17 11:17 POC ABG pH 7.399 (7.35-7.45) 12/10/17 22:57 POC ABG pCO2 30.9 (35-45) L 12/10/17 22:57 POC ABG pO2 127 (80-105) H 12/10/17 22:57 POC ABG HCO3 19.1 12/10/17 22:57 POC ABG Total CO2 20 12/10/17 22:57 POC ABG O2 Sat 99 12/10/17 22:57 POC ABG Base Excess -6 12/10/17 22:57 FiO2 100 % 12/10/17 22:57 Sodium 139 mmol/L (137-145) 12/15/17 05:16 Potassium 3.3 mmol/L (3.6-5.0) L 12/15/17 05:16 Chloride 98.0 mmol/L (98-107) 12/15/17 05:16 Carbon Dioxide 28 mmol/L (22-30) 12/15/17 05:16 Anion Gap 16 mmol/L 12/15/17 05:16 BUN 18 mg/dL (7-17) H 12/15/17 05:16 Creatinine 0.8 mg/dL (0.7-1.2) 12/15/17 05:16 Estimated GFR > 60 ml/min 12/15/17 05:16 BUN/Creatinine Ratio 23 % 12/15/17 05:16 Glucose 88 mg/dL (65-100) 12/15/17 05:16 Calcium 8.2 mg/dL (8.4-10.2) L 12/15/17 05:16 Magnesium 2.10 mg/dL (1.7-2.3) 12/15/17 05:16 Total Bilirubin 0.40 mg/dL (0.1-1.2) 12/15/17 05:16 AST 28 units/L (5-40) 12/15/17 05:16 ALT 53 units/L (7-56) 12/15/17 05:16 Alkaline Phosphatase 79 units/L (35-129) 12/15/17 05:16 Total Creatine Kinase 95 units/L (30-135) 12/11/17 14:09 CK-MB (CK-2) 10.7 ng/mL (0.0-4.0) H 12/11/17 14:09 CK-MB (CK-2) Rel Index 11.2 (0-4) H 12/11/17 14:09 Troponin T 1.570 ng/mL (0.00-0.029) H* 12/11/17 14:09 C-Reactive Protein 9.80 mg/dL (0.00-1.30) H 12/13/17 05:56 NT-Pro-B Natriuret Pep 15034 pg/mL (0-450) H 12/10/17 23:17 Total Protein 5.9 g/dL (6.3-8.2) L 12/15/17 05:16 Albumin 2.8 g/dL (3.9-5) L 12/15/17 05:16 Albumin/Globulin Ratio 0.9 % 12/15/17 05:16 Triglycerides 105 mg/dL (2-149) 12/10/17 23:17 Cholesterol 112 mg/dL (50-199) 12/10/17 23:17 LDL Cholesterol Direct 61 mg/dL (50-130) 12/10/17 23:17 HDL Cholesterol 29 mg/dL (40-59) L 12/10/17 23:17 Cholesterol/HDL Ratio 3.86 % 12/10/17 23:17 HCG, Qual Negative (Negative) 12/10/17 23:17 Urine Color Yellow (Yellow) 12/11/17 00:03 Urine Turbidity Hazy (Clear) 12/11/17 00:03 Urine pH 6.0 (5.0-7.0) 12/11/17 00:03 Ur Specific [place] 1.010 (1.003-1.030) 12/11/17 00:03 Urine Protein 100 mg/dl mg/dL (Negative) 12/11/17 00:03 Urine Glucose (UA) 50 mg/dL (Negative) 12/11/17 00:03 Urine Ketones Neg mg/dL (Negative) 12/11/17 00:03 Urine Blood Mod (Negative) 12/11/17 00:03 Urine Nitrite Neg (Negative) 12/11/17 00:03 Urine Bilirubin Neg (Negative) 12/11/17 00:03 Urine Urobilinogen 2.0 mg/dL (<2.0) 12/11/17 00:03 Ur Leukocyte Esterase Mod (Negative) 12/11/17 00:03 Urine WBC (Auto) 24.0 /HPF (0.0-6.0) H 12/11/17 00:03 Urine RBC (Auto) 31.0 /HPF (0.0-6.0) 12/11/17 00:03 U Epithel Cells (Auto) 3.0 /HPF (0-13.0) 12/11/17 00:03 Urine Bacteria (Auto) 2+ /HPF (Negative) 12/11/17 00:03 Urine Mucus Few /HPF 12/11/17 00:03 Urine Trichomonas Present /HPF 12/11/17 00:03 Urine Yeast (Budding) Not Reportable 12/11/17 00:03 Vancomycin Trough 25.2 ug/mL (5.0-20.0) H 12/13/17 20:33 Urine Opiates Screen Presumptive negative 12/11/17 00:03 Urine Methadone Screen Presumptive negative 12/11/17 00:03 Ur Barbiturates Screen Presumptive negative 12/11/17 00:03 Ur Phencyclidine Scrn Presumptive negative 12/11/17 00:03 Ur Amphetamines Screen Presumptive negative 12/11/17 00:03 U Benzodiazepines Scrn Presumptive positive 12/11/17 00:03 Urine Cocaine Screen Presumptive negative 12/11/17 00:03 U Marijuana (THC) Screen Presumptive negative 12/11/17 00:03 Drugs of Abuse Note Disclamer 12/11/17 00:03
[2017-12-15] MEDS: SODIUM CHLORIDE FLUSH SYRINGE 10 ML IV SCH ×2 (11:55→22:02)
[2017-12-15] MEDS ORDERED: K-DUR PO ONE (12:00)
--- NOTE | 2017-12-15 12:10 | Progress Note ---
Assessment and Plan Per ID, may need to consider tricuspid valve replacement and/or transfer to tertiary care facility. Pt with mild TR per LIZZ, no TV obstruction visualized, no evidence of RV failure, RV size and systolic function normal, no evidence of significant arrhythmias. Recommend continuation of IV abx per ID's recommendations and f/u blood cultures. Pt appears to be clinically improving on current regimen. Will follow. The patient has been seen in conjunction with Dr. Courtney who agrees with the assessment and plan of care. - Patient Problems (1) Anemia Current Visit: Yes Status: Acute (2) Heart failure with reduced ejection fraction Current Visit: Yes Status: Acute (3) Cardiomyopathy Current Visit: Yes Status: Chronic (4) Endocarditis of tricuspid valve Current Visit: Yes Status: Acute (5) Sepsis Current Visit: Yes Status: Acute (6) MRSA bacteremia Current Visit: Yes Status: Acute (7) NSTEMI (non-ST elevated myocardial infarction) Current Visit: Yes Status: Acute (8) Aortic stenosis Current Visit: Yes Status: Chronic (9) Mitral regurgitation Current Visit: Yes Status: Chronic (10) Polysubstance abuse Current Visit: Yes Status: Chronic Subjective Date of service: 12/15/17 Principal diagnosis: HF; sepsis Interval history: pt resting comfortably in bed, no current cardiac complaints. tele reviewed - currently in SR with 4 beat run NSVT noted yesterday afternoon. Objective Last Vital Signs Temp 98.1 F 12/15/17 11:17 Pulse 89 12/15/17 11:17 Resp 18 12/15/17 11:17 BP 135/72 12/15/17 11:17 Pulse Ox 98 12/15/17 11:17 - Physical Examination General: No Apparent Distress HEENT: Positive: PERRL, Normocephaly, Mucus Membranes Moist Neck: Positive: neck supple, trachea midline Cardiac: Positive: Reg Rate and Rhythm, S1/S2 Lungs: Positive: clear to auscultation Neuro: Positive: Grossly Intact Abdomen: Positive: Soft. Negative: Tender Skin: Positive: Clear. Negative: Rash, Wound Musculoskeletal: No Pain, Normal Range of Motion Extremities: Present: upper extr. pulses, lower extr. pulses. Absent: edema - Labs and Meds Cardiac Enzymes 12/15/17 Range/Units 05:16 AST 28 (5-40) units/L CBC 12/15/17 Range/Units 05:16 WBC 12.7 H (4.5-11.0) K/mm3 RBC 3.21 L (3.65-5.03) M/mm3 Hgb 8.3 L (10.1-14.3) gm/dl Hct 26.1 L (30.3-42.9) % Plt Count 393 (140-440) K/mm3 Lymph # 1.9 (1.2-5.4) K/mm3 [place] # 0.6 (0.0-0.8) K/mm3 Eos # 0.2 (0.0-0.4) K/mm3 Baso # 0.1 (0.0-0.1) K/mm3 Comprehensive Metabolic Panel 12/15/17 Range/Units 05:16 Sodium 139 (137-145) mmol/L Potassium 3.3 L (3.6-5.0) mmol/L Chloride 98.0 (98-107) mmol/L Carbon Dioxide 28 (22-30) mmol/L BUN 18 H (7-17) mg/dL Creatinine 0.8 (0.7-1.2) mg/dL Glucose 88 (65-100) mg/dL Calcium 8.2 L (8.4-10.2) mg/dL AST 28 (5-40) units/L ALT 53 (7-56) units/L Alkaline Phosphatase 79 (35-129) units/L Total Protein 5.9 L (6.3-8.2) g/dL Albumin 2.8 L (3.9-5) g/dL - Imaging and Cardiology EKG: report reviewed, image reviewed Echo: report reviewed - EKG Sinus rhythms and dysrhythmias: sinus rhythm (``) Chamber hypertrophy or enlargement: left atrial enlargement
[2017-12-15] MEDS: NACL 0.9% IV SCH (12:59)
[2017-12-15] MEDS: CUBICIN IV SCH (12:59)
--- NOTE | 2017-12-15 13:30 | XRay Report ---
Portable chest: Line placement. A right PICC line has been place with the tip in the mid SVC. The mediastinal contour is unremarkable. There is diffuse prominence of the interstitial pattern and what may represent a small right pleural effusion. The cardiovascular pattern however is improved compared to December 10. Impressions: Improving cardiovascular pattern consistent with fluid overload. Well-positioned right PICC line.
[2017-12-15] MEDS: LOVENOX SUB-Q SCH (22:02)
[2017-12-16] MEDS: XANAX PO PRN ×3 (00:13→18:10)
[2017-12-16 06:09] LABS: BUN/Creatinine Ratio 20; Blood Urea Nitrogen 16 mg/dL (7-17); Calcium 8.1 mg/dL (8.4-10.2); Hemolysis Index 0
[2017-12-16] MEDS: LASIX IV SCH ×2 (09:47→20:22)
[2017-12-16] MEDS: LOPRESSOR PO SCH ×2 (09:47→22:51)
[2017-12-16] MEDS: BABY ASPIRIN PO SCH (09:47)
[2017-12-16] MEDS: SODIUM CHLORIDE FLUSH SYRINGE 10 ML IV SCH ×2 (09:47→22:52)
[2017-12-16] MEDS ORDERED: K-DUR PO NR (10:03)
--- NOTE | 2017-12-16 10:06 | Progress Note ---
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 Persistent positive MRSA cultures , ID following ID changed vancomycin, to daptomycin Follow-up repeat cultures --Persistent MRSA; contact isolation, IV vancomycin Changed to daptomycin --Acute on chronic systolic congestive heart failure Ejection fraction 30% to 40%, continue anti-failure medications Cardiology following --Non-ST elevation [place]; stress test fixed defect Continue current cardiac medications, cardiology following --Sepsis; Secondary to endocarditis, MRSA bacteremia, continue current antibiotics, per ID --Anemia; closely monitor H&H and transfuse as needed --Polysubstance abuse; counseling and patient strongly advised to quit recreational drug use --Aortic stenosis; supportive care cardiology following --Gen. Anxiety; consult psych, Xanax as needed --DVT prophylaxis; Lovenox Consults and recommendations noted and appreciated Plan of care reviewed with the patient and her nurse History Interval history: Patient seen and examined medical records reviewed No new events reported by the nursing The patient is alert awake oriented 3 Vital signs reviewed Hospitalist Physical - Constitutional Vitals: Temp Pulse Resp BP Pulse Ox 97.5 F L 94 H 18 139/73 97 12/16/17 07:55 12/16/17 07:55 12/16/17 07:55 12/16/17 09:47 12/16/17 07:55 General appearance: Present: no acute distress, well-nourished - EENT Eyes: Present: PERRL, EOM intact - Neck Neck: Present: supple, normal ROM - Respiratory Respiratory effort: normal Respiratory: bilateral: diminished, rhonchi, negative: rales, wheezing - Cardiovascular Rhythm: regular Heart Sounds: Present: S1 & S2 - Extremities Extremities: no ischemia, No edema - Abdominal General gastrointestinal: soft, non-tender, non-distended, normal bowel sounds - Integumentary Integumentary: Present: clear, warm, erythema - Psychiatric Psychiatric: appropriate mood/affect, cooperative - Neurologic Neurologic: CNII-XII intact, moves all extremities Results - Labs CBC & Chem 7: 12/15/17 05:16 12/16/17 05:17 Labs: Laboratory Last Values WBC 12.7 K/mm3 (4.5-11.0) H 12/15/17 05:16 RBC 3.21 M/mm3 (3.65-5.03) L 12/15/17 05:16 Hgb 8.3 gm/dl (10.1-14.3) L 12/15/17 05:16 Hct 26.1 % (30.3-42.9) L 12/15/17 05:16 MCV 81 fl (79-97) 12/15/17 05:16 MCH 26 pg (28-32) L 12/15/17 05:16 MCHC 32 % (30-34) 12/15/17 05:16 RDW 16.9 % (13.2-15.2) H 12/15/17 05:16 Plt Count 393 K/mm3 (140-440) 12/15/17 05:16 Lymph % (Auto) 14.8 % (13.4-35.0) 12/15/17 05:16 [place] % (Auto) 4.7 % (0.0-7.3) 12/15/17 05:16 Eos % (Auto) 1.4 % (0.0-4.3) 12/15/17 05:16 Baso % (Auto) 0.4 % (0.0-1.8) 12/15/17 05:16 Lymph # 1.9 K/mm3 (1.2-5.4) 12/15/17 05:16 [place] # 0.6 K/mm3 (0.0-0.8) 12/15/17 05:16 Eos # 0.2 K/mm3 (0.0-0.4) 12/15/17 05:16 Baso # 0.1 K/mm3 (0.0-0.1) 12/15/17 05:16 Add Manual Diff Complete 12/13/17 05:56 Total Counted 100 12/13/17 05:56 Seg Neutrophils % 78.7 % (40.0-70.0) H 12/15/17 05:16 Seg Neuts % (Manual) 79.0 % (40.0-70.0) H 12/13/17 05:56 Band Neutrophils % 5.0 % 12/13/17 05:56 Lymphocytes % (Manual) 10.0 % (13.4-35.0) L 12/13/17 05:56 Reactive Lymphs % (Man) 0 % 12/13/17 05:56 Monocytes % (Manual) 6.0 % (0.0-7.3) 12/13/17 05:56 Eosinophils % (Manual) 0 % (0.0-4.3) 12/13/17 05:56 Basophils % (Manual) 0 % (0.0-1.8) 12/13/17 05:56 Metamyelocytes % 0 % 12/13/17 05:56 Myelocytes % 0 % 12/13/17 05:56 Promyelocytes % 0 % 12/13/17 05:56 Blast Cells % 0 % 12/13/17 05:56 Nucleated RBC % Not Reportable 12/13/17 05:56 Seg Neutrophils # 10.0 K/mm3 (1.8-7.7) H 12/15/17 05:16 Seg Neutrophils # Man 11.6 K/mm3 (1.8-7.7) H 12/13/17 05:56 Band Neutrophils # 0.7 K/mm3 12/13/17 05:56 Lymphocytes # (Manual) 1.5 K/mm3 (1.2-5.4) 12/13/17 05:56 Abs React Lymphs (Man) 0.0 K/mm3 12/13/17 05:56 Monocytes # (Manual) 0.9 K/mm3 (0.0-0.8) H 12/13/17 05:56 Eosinophils # (Manual) 0.0 K/mm3 (0.0-0.4) 12/13/17 05:56 Basophils # (Manual) 0.0 K/mm3 (0.0-0.1) 12/13/17 05:56 Metamyelocytes # 0.0 K/mm3 12/13/17 05:56 Myelocytes # 0.0 K/mm3 12/13/17 05:56 Promyelocytes # 0.0 K/mm3 12/13/17 05:56 Blast Cells # 0.0 K/mm3 12/13/17 05:56 WBC Morphology Not Reportable 12/13/17 05:56 Hypersegmented Neuts Not Reportable 12/13/17 05:56 Hyposegmented Neuts Not Reportable 12/13/17 05:56 Hypogranular Neuts Not Reportable 12/13/17 05:56 Smudge Cells Not Reportable 12/13/17 05:56 Toxic Granulation Not Reportable 12/13/17 05:56 Toxic Vacuolation Not Reportable 12/13/17 05:56 Dohle Bodies Not Reportable 12/13/17 05:56 Pelger-Huet Anomaly Not Reportable 12/13/17 05:56 Adelaida Rods Not Reportable 12/13/17 05:56 Platelet Estimate Appears normal 12/13/17 05:56 Clumped Platelets Not Reportable 12/13/17 05:56 Plt Clumps, EDTA Not Reportable 12/13/17 05:56 Large Platelets Not Reportable 12/13/17 05:56 Giant Platelets Not Reportable 12/13/17 05:56 Platelet Satelliting Not Reportable 12/13/17 05:56 Plt Morphology Comment Not Reportable 12/13/17 05:56 RBC Morphology Not Reportable 12/13/17 05:56 Dimorphic RBCs Not Reportable 12/13/17 05:56 Polychromasia Few 12/13/17 05:56 Hypochromasia 1+ 12/13/17 05:56 Poikilocytosis Not Reportable 12/13/17 05:56 Anisocytosis 1+ 12/13/17 05:56 Microcytosis Not Reportable 12/13/17 05:56 Macrocytosis Not Reportable 12/13/17 05:56 Spherocytes Not Reportable 12/13/17 05:56 Pappenheimer Bodies Not Reportable 12/13/17 05:56 Sickle Cells Not Reportable 12/13/17 05:56 Target Cells Not Reportable 12/13/17 05:56 Tear Drop Cells Not Reportable 12/13/17 05:56 Ovalocytes Not Reportable 12/13/17 05:56 Stomatocytes Few 12/10/17 23:17 Helmet Cells Not Reportable 12/13/17 05:56 Peguero-[place] Bodies Not Reportable 12/13/17 05:56 [place] Rings Not Reportable 12/13/17 05:56 Linch Cells Not Reportable 12/13/17 05:56 Bite Cells Not Reportable 12/13/17 05:56 Crenated Cell Not Reportable 12/13/17 05:56 Elliptocytes Few 12/13/17 05:56 Acanthocytes (Spur) Not Reportable 12/13/17 05:56 Rouleaux Not Reportable 12/13/17 05:56 Hemoglobin C Crystals Not Reportable 12/13/17 05:56 Schistocytes Not Reportable 12/13/17 05:56 Malaria parasites Not Reportable 12/13/17 05:56 ESR 97 mm/Hr (0-20) 12/13/17 05:56 Slim Bodies Not Reportable 12/13/17 05:56 Hem Pathologist Commnt No 12/13/17 05:56 PT 14.2 Sec. (12.2-14.9) 12/10/17 23:17 INR 1.05 (0.87-1.13) 12/10/17 23:17 APTT 31.7 Sec. (24.2-36.6) 12/10/17 23:17 D-Dimer 4736.01 ng/mlDDU (0-234) H 12/10/17 23:17 Heparin Anti-Xa Level 0.14 U.I./ml (0.3-0.7) L 12/12/17 11:17 POC ABG pH 7.399 (7.35-7.45) 12/10/17 22:57 POC ABG pCO2 30.9 (35-45) L 12/10/17 22:57 POC ABG pO2 127 (80-105) H 12/10/17 22:57 POC ABG HCO3 19.1 12/10/17 22:57 POC ABG Total CO2 20 12/10/17 22:57 POC ABG O2 Sat 99 12/10/17 22:57 POC ABG Base Excess -6 12/10/17 22:57 FiO2 100 % 12/10/17 22:57 Sodium 137 mmol/L (137-145) 12/16/17 05:17 Potassium 3.5 mmol/L (3.6-5.0) L 12/16/17 05:17 Chloride 95.9 mmol/L (98-107) L 12/16/17 05:17 Carbon Dioxide 28 mmol/L (22-30) 12/16/17 05:17 Anion Gap 17 mmol/L 12/16/17 05:17 BUN 16 mg/dL (7-17) 12/16/17 05:17 Creatinine 0.8 mg/dL (0.7-1.2) 12/16/17 05:17 Estimated GFR > 60 ml/min 12/16/17 05:17 BUN/Creatinine Ratio 20 % 12/16/17 05:17 Glucose 81 mg/dL (65-100) 12/16/17 05:17 Calcium 8.1 mg/dL (8.4-10.2) L 12/16/17 05:17 Magnesium 2.10 mg/dL (1.7-2.3) 12/15/17 05:16 Total Bilirubin 0.40 mg/dL (0.1-1.2) 12/15/17 05:16 AST 28 units/L (5-40) 12/15/17 05:16 ALT 53 units/L (7-56) 12/15/17 05:16 Alkaline Phosphatase 79 units/L (35-129) 12/15/17 05:16 Total Creatine Kinase 95 units/L (30-135) 12/11/17 14:09 CK-MB (CK-2) 10.7 ng/mL (0.0-4.0) H 12/11/17 14:09 CK-MB (CK-2) Rel Index 11.2 (0-4) H 12/11/17 14:09 Troponin T 1.570 ng/mL (0.00-0.029) H* 12/11/17 14:09 C-Reactive Protein 9.80 mg/dL (0.00-1.30) H 12/13/17 05:56 NT-Pro-B Natriuret Pep 42814 pg/mL (0-450) H 12/10/17 23:17 Total Protein 5.9 g/dL (6.3-8.2) L 12/15/17 05:16 Albumin 2.8 g/dL (3.9-5) L 12/15/17 05:16 Albumin/Globulin Ratio 0.9 % 12/15/17 05:16 Triglycerides 105 mg/dL (2-149) 12/10/17 23:17 Cholesterol 112 mg/dL (50-199) 12/10/17 23:17 LDL Cholesterol Direct 61 mg/dL (50-130) 12/10/17 23:17 HDL Cholesterol 29 mg/dL (40-59) L 12/10/17 23:17 Cholesterol/HDL Ratio 3.86 % 12/10/17 23:17 HCG, Qual Negative (Negative) 12/10/17 23:17 Urine Color Yellow (Yellow) 12/11/17 00:03 Urine Turbidity Hazy (Clear) 12/11/17 00:03 Urine pH 6.0 (5.0-7.0) 12/11/17 00:03 Ur Specific [place] 1.010 (1.003-1.030) 12/11/17 00:03 Urine Protein 100 mg/dl mg/dL (Negative) 12/11/17 00:03 Urine Glucose (UA) 50 mg/dL (Negative) 12/11/17 00:03 Urine Ketones Neg mg/dL (Negative) 12/11/17 00:03 Urine Blood Mod (Negative) 12/11/17 00:03 Urine Nitrite Neg (Negative) 12/11/17 00:03 Urine Bilirubin Neg (Negative) 12/11/17 00:03 Urine Urobilinogen 2.0 mg/dL (<2.0) 12/11/17 00:03 Ur Leukocyte Esterase Mod (Negative) 12/11/17 00:03 Urine WBC (Auto) 24.0 /HPF (0.0-6.0) H 12/11/17 00:03 Urine RBC (Auto) 31.0 /HPF (0.0-6.0) 12/11/17 00:03 U Epithel Cells (Auto) 3.0 /HPF (0-13.0) 12/11/17 00:03 Urine Bacteria (Auto) 2+ /HPF (Negative) 12/11/17 00:03 Urine Mucus Few /HPF 12/11/17 00:03 Urine Trichomonas Present /HPF 12/11/17 00:03 Urine Yeast (Budding) Not Reportable 12/11/17 00:03 Vancomycin Trough 25.2 ug/mL (5.0-20.0) H 12/13/17 20:33 Urine Opiates Screen Presumptive negative 12/11/17 00:03 Urine Methadone Screen Presumptive negative 12/11/17 00:03 Ur Barbiturates Screen Presumptive negative 12/11/17 00:03 Ur Phencyclidine Scrn Presumptive negative 12/11/17 00:03 Ur Amphetamines Screen Presumptive negative 12/11/17 00:03 U Benzodiazepines Scrn Presumptive positive 12/11/17 00:03 Urine Cocaine Screen Presumptive negative 12/11/17 00:03 U Marijuana (THC) Screen Presumptive negative 12/11/17 00:03 Drugs of Abuse Note Disclamer 12/11/17 00:03
--- NOTE | 2017-12-16 12:29 | Progress Note ---
Assessment and Plan CD of TTE and LIZZ sent to Cardiac surgery - at [facility]. Dr. Rodriguez is to review the information sent and make recommendations. The patient has been seen in conjunction with Dr. Courtney who agrees with the assessment and plan of care. - Patient Problems (1) Anemia Current Visit: Yes Status: Acute (2) Heart failure with reduced ejection fraction Current Visit: Yes Status: Acute (3) Cardiomyopathy Current Visit: Yes Status: Chronic (4) Endocarditis of tricuspid valve Current Visit: Yes Status: Acute (5) Sepsis Current Visit: Yes Status: Acute (6) MRSA bacteremia Current Visit: Yes Status: Acute (7) NSTEMI (non-ST elevated myocardial infarction) Current Visit: Yes Status: Acute (8) Aortic stenosis Current Visit: Yes Status: Chronic (9) Mitral regurgitation Current Visit: Yes Status: Chronic (10) Polysubstance abuse Current Visit: Yes Status: Chronic Subjective Date of service: 12/16/17 Principal diagnosis: HF; sepsis Interval history: pt resting comfortably in bed, no current cardiac complaints. Objective Last Vital Signs Temp 97.5 F L 12/16/17 07:55 Pulse 104 H 12/16/17 10:00 Resp 18 12/16/17 10:00 BP 139/73 12/16/17 09:47 Pulse Ox 97 12/16/17 07:55 - Physical Examination General: No Apparent Distress HEENT: Positive: PERRL, Normocephaly, Mucus Membranes Moist Neck: Positive: neck supple, trachea midline Cardiac: Positive: Reg Rate and Rhythm, S1/S2 Lungs: Positive: clear to auscultation Neuro: Positive: Grossly Intact Abdomen: Positive: Soft. Negative: Tender Skin: Positive: Clear. Negative: Rash, Wound Musculoskeletal: No Pain, Normal Range of Motion Extremities: Present: upper extr. pulses, lower extr. pulses. Absent: edema - Labs and Meds Comprehensive Metabolic Panel 12/16/17 Range/Units 05:17 Sodium 137 (137-145) mmol/L Potassium 3.5 L (3.6-5.0) mmol/L Chloride 95.9 L (98-107) mmol/L Carbon Dioxide 28 (22-30) mmol/L BUN 16 (7-17) mg/dL Creatinine 0.8 (0.7-1.2) mg/dL Glucose 81 (65-100) mg/dL Calcium 8.1 L (8.4-10.2) mg/dL - Imaging and Cardiology EKG: report reviewed, image reviewed Echo: report reviewed - EKG Sinus rhythms and dysrhythmias: sinus rhythm (``) Chamber hypertrophy or enlargement: left atrial enlargement
--- NOTE | 2017-12-16 13:22 | Progress Note ---
Assessment and Plan Assessment: 1) Sepsis: resolved. Etiology most likely complicated MRSA septicemia. 2) Complicated MRSA bacteremia with TV endocarditis: source ? skin pustules ? IVDU (patient denies) - with persistent fever and patient left AMA on 12/10 -Blood cx 12/01 MRSA 4 of 4 bottles -Blood cx 12/05 neg -Blood cx 7/ neg -Blood cx 12/11 MRSA 2 of 4 bottles - vanco ILENE=2 -Blood cx 12/12 no growth today -TTE EF 35%, mod AR/AE -CT lumbar spine w/o cont normal -MRI lumbar and thoracic no abscesses -LIZZ large mobile mass at the septal tricuspid valve 1.4x0.8cm 3) CHF exacerbation in the setting acute endocarditis 4) Polysubstance abuse + Amph + marihuana 5) Mild UTI Plan: -in light of vegetation size, CHF and persistent blood cx despite vancomycin will ask Cards to discuss with CT surgery pt may require valve replacement - pending -continue daptomycin -upon discharge will do daptomycin 360 mg IV qday total 6 weeks until 01/23/18. Orders sent to counseling case manager Discussed with Cards Thank you for your consultation, will follow up with you. Samanta Marr MD Infectious Diseases Specialist [facility] M [phone] O [phone] Subjective Date of service: 12/16/17 Principal diagnosis: HF; sepsis Interval history: Feels better, no fever. Microbiology: Blood cx 12/01 MRSA 4 of 4 bottles Blood cx 12/05 neg Blood cx 7/2 neg Blood cx / MRSA 2 of 4 bottles - vanco ILENE=2 Blood cx 12/12 ngtd Current Antimicrobials: dapto 12/15 Previous Antimicrobials: vanco 12/02-12/10 (left AMA) vanco 7/ Objective - Exam Narrative Exam: General appearance: Alert in NAD, conversant anxious Eyes: anicteric sclerae, moist conjunctivae; no lid-lag; PERRLA HENT: Atraumatic; oropharynx clear with moist mucous membranes and no mucosal ulcerations/no oral thrush; normal hard and soft palate. Normal external ears. Neck: Trachea midline; supple, no thyromegaly or lymphadenopathy Lungs: chapin rales CV: RRR, + murmurs Abdomen: Soft, non-tender; no masses or hepatosplenomegaly Extremities: No peripheral edema or extremity lymphadenopathy Skin: Normal temperature, turgor and texture; no rash, ulcers or subcutaneous nodules Psych: Appropriate affect, alert and oriented to person, place and time. Neuro: alert and oriented x 3. Moving all extermities Lines: No CVL / PICC - Constitutional Vitals: Vital Signs Temp Pulse Resp BP Pulse Ox 98.9 F 86 18 116/66 95 12/16/17 12:05 12/16/17 12:04 12/16/17 12:05 12/16/17 12:04 12/16/17 12:04 Temperature -Last 24 Hours Temperature 98.9 F Temperature 98.9 F Temperature 98.9 F Temperature 97.5 F Temperature 98.9 F Temperature 99.7 F Temperature 97.5 F Temperature 97.5 F Temperature 98.0 F - Labs CBC & Chem 7: 12/15/17 05:16 12/16/17 05:17 Labs: Abnormal lab results 12/16/17 Range/Units 05:17 Potassium 3.5 L (3.6-5.0) mmol/L Chloride 95.9 L (98-107) mmol/L Calcium 8.1 L (8.4-10.2) mg/dL
[2017-12-16] MEDS ORDERED: NACL 0.9% 500 ML 500 ML ONE (14:14)
[2017-12-16] MEDS: NACL 0.9% IV SCH (14:20)
[2017-12-16] MEDS: CUBICIN IV SCH (14:20)
[2017-12-16] MEDS: TYLENOL PO PRN (18:09)
[2017-12-16] MEDS: LOVENOX SUB-Q SCH (22:51)
[2017-12-17] MEDS: XANAX PO PRN ×2 (01:40→10:39)
[2017-12-17] MEDS: TYLENOL PO PRN (04:45)
--- NOTE | 2017-12-17 08:28 | Progress Note ---
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 Cardiology discussing with the cardiothoracic surgery at [place] CT surgeon recommend IV antibiotic therapy for 6 weeks, serial blood cultures --Sepsis /Persistent MRSA cultures,Endocarditis contact isolation Received Vanco now on daptomycin. Continue daptomycin per ID for 6 weeks. Stop date , Patient already has PICC line, manager case management setting up Long-term IV antibiotics ,Follow repeat cultures --Acute on chronic systolic congestive heart failure Ejection fraction 30% to 40%, continue anti-failure medications Cardiology following --Non-ST elevation NV; stress test fixed defect Continue current cardiac medications, cardiology following --Anemia; closely monitor H&H and transfuse as needed --Polysubstance abuse; counseling and patient strongly advised to quit recreational drug use --Aortic stenosis; supportive care cardiology following --Gen. Anxiety; consult psych, Xanax as needed --Severe malnutrition; nutrition supplements and supportive care --DVT prophylaxis; Lovenox Consults and recommendations noted and appreciated Plan of care reviewed with the patient and her nurse History Interval history: Patient seen and examined medical records reviewed Persistent MRSA, tricuspid valve endocarditis, on daptomycin Cardiology making plans to discuss with CT surgeons at [place] The treatment plan. Patient feels better slightly, anxious Signs reviewed Alert awake oriented 3 not in acute distress Hospitalist Physical - Constitutional Vitals: Temp Pulse Resp BP Pulse Ox 98.3 F 98 H 18 137/71 95 12/17/17 07:35 12/17/17 07:35 12/17/17 07:35 12/17/17 07:35 12/17/17 07:35 General appearance: Present: no acute distress, well-nourished - EENT Eyes: Present: PERRL, EOM intact - Neck Neck: Present: supple, normal ROM - Respiratory Respiratory effort: normal Respiratory: bilateral: diminished, negative: rales, rhonchi, wheezing - Cardiovascular Rhythm: regular Heart Sounds: Present: S1 & S2 - Extremities Extremities: no ischemia, No edema - Abdominal General gastrointestinal: soft, non-tender, non-distended, normal bowel sounds - Integumentary Integumentary: Present: clear, warm - Psychiatric Psychiatric: appropriate mood/affect, cooperative - Neurologic Neurologic: CNII-XII intact, moves all extremities Results - Labs CBC & Chem 7: 12/15/17 05:16 12/16/17 05:17 Labs: Laboratory Last Values WBC 12.7 K/mm3 (4.5-11.0) H 12/15/17 05:16 RBC 3.21 M/mm3 (3.65-5.03) L 12/15/17 05:16 Hgb 8.3 gm/dl (10.1-14.3) L 12/15/17 05:16 Hct 26.1 % (30.3-42.9) L 12/15/17 05:16 MCV 81 fl (79-97) 12/15/17 05:16 MCH 26 pg (28-32) L 12/15/17 05:16 MCHC 32 % (30-34) 12/15/17 05:16 RDW 16.9 % (13.2-15.2) H 12/15/17 05:16 Plt Count 393 K/mm3 (140-440) 12/15/17 05:16 Lymph % (Auto) 14.8 % (13.4-35.0) 12/15/17 05:16 [place] % (Auto) 4.7 % (0.0-7.3) 12/15/17 05:16 Eos % (Auto) 1.4 % (0.0-4.3) 12/15/17 05:16 Baso % (Auto) 0.4 % (0.0-1.8) 12/15/17 05:16 Lymph # 1.9 K/mm3 (1.2-5.4) 12/15/17 05:16 [place] # 0.6 K/mm3 (0.0-0.8) 12/15/17 05:16 Eos # 0.2 K/mm3 (0.0-0.4) 12/15/17 05:16 Baso # 0.1 K/mm3 (0.0-0.1) 12/15/17 05:16 Add Manual Diff Complete 12/13/17 05:56 Total Counted 100 12/13/17 05:56 Seg Neutrophils % 78.7 % (40.0-70.0) H 12/15/17 05:16 Seg Neuts % (Manual) 79.0 % (40.0-70.0) H 12/13/17 05:56 Band Neutrophils % 5.0 % 12/13/17 05:56 Lymphocytes % (Manual) 10.0 % (13.4-35.0) L 12/13/17 05:56 Reactive Lymphs % (Man) 0 % 12/13/17 05:56 Monocytes % (Manual) 6.0 % (0.0-7.3) 12/13/17 05:56 Eosinophils % (Manual) 0 % (0.0-4.3) 12/13/17 05:56 Basophils % (Manual) 0 % (0.0-1.8) 12/13/17 05:56 Metamyelocytes % 0 % 12/13/17 05:56 Myelocytes % 0 % 12/13/17 05:56 Promyelocytes % 0 % 12/13/17 05:56 Blast Cells % 0 % 12/13/17 05:56 Nucleated RBC % Not Reportable 12/13/17 05:56 Seg Neutrophils # 10.0 K/mm3 (1.8-7.7) H 12/15/17 05:16 Seg Neutrophils # Man 11.6 K/mm3 (1.8-7.7) H 12/13/17 05:56 Band Neutrophils # 0.7 K/mm3 12/13/17 05:56 Lymphocytes # (Manual) 1.5 K/mm3 (1.2-5.4) 12/13/17 05:56 Abs React Lymphs (Man) 0.0 K/mm3 12/13/17 05:56 Monocytes # (Manual) 0.9 K/mm3 (0.0-0.8) H 12/13/17 05:56 Eosinophils # (Manual) 0.0 K/mm3 (0.0-0.4) 12/13/17 05:56 Basophils # (Manual) 0.0 K/mm3 (0.0-0.1) 12/13/17 05:56 Metamyelocytes # 0.0 K/mm3 12/13/17 05:56 Myelocytes # 0.0 K/mm3 12/13/17 05:56 Promyelocytes # 0.0 K/mm3 12/13/17 05:56 Blast Cells # 0.0 K/mm3 12/13/17 05:56 WBC Morphology Not Reportable 12/13/17 05:56 Hypersegmented Neuts Not Reportable 12/13/17 05:56 Hyposegmented Neuts Not Reportable 12/13/17 05:56 Hypogranular Neuts Not Reportable 12/13/17 05:56 Smudge Cells Not Reportable 12/13/17 05:56 Toxic Granulation Not Reportable 12/13/17 05:56 Toxic Vacuolation Not Reportable 12/13/17 05:56 Dohle Bodies Not Reportable 12/13/17 05:56 Pelger-Huet Anomaly Not Reportable 12/13/17 05:56 Adelaida Rods Not Reportable 12/13/17 05:56 Platelet Estimate Appears normal 12/13/17 05:56 Clumped Platelets Not Reportable 12/13/17 05:56 Plt Clumps, EDTA Not Reportable 12/13/17 05:56 Large Platelets Not Reportable 12/13/17 05:56 Giant Platelets Not Reportable 12/13/17 05:56 Platelet Satelliting Not Reportable 12/13/17 05:56 Plt Morphology Comment Not Reportable 12/13/17 05:56 RBC Morphology Not Reportable 12/13/17 05:56 Dimorphic RBCs Not Reportable 12/13/17 05:56 Polychromasia Few 12/13/17 05:56 Hypochromasia 1+ 12/13/17 05:56 Poikilocytosis Not Reportable 12/13/17 05:56 Anisocytosis 1+ 12/13/17 05:56 Microcytosis Not Reportable 12/13/17 05:56 Macrocytosis Not Reportable 12/13/17 05:56 Spherocytes Not Reportable 12/13/17 05:56 Pappenheimer Bodies Not Reportable 12/13/17 05:56 Sickle Cells Not Reportable 12/13/17 05:56 Target Cells Not Reportable 12/13/17 05:56 Tear Drop Cells Not Reportable 12/13/17 05:56 Ovalocytes Not Reportable 12/13/17 05:56 Stomatocytes Few 12/10/17 23:17 Helmet Cells Not Reportable 12/13/17 05:56 [place] Bodies Not Reportable 12/13/17 05:56 [place] Rings Not Reportable 12/13/17 05:56 Concepcion Cells Not Reportable 12/13/17 05:56 Bite Cells Not Reportable 12/13/17 05:56 Crenated Cell Not Reportable 12/13/17 05:56 Elliptocytes Few 12/13/17 05:56 Acanthocytes (Spur) Not Reportable 12/13/17 05:56 Rouleaux Not Reportable 12/13/17 05:56 Hemoglobin C Crystals Not Reportable 12/13/17 05:56 Schistocytes Not Reportable 12/13/17 05:56 Malaria parasites Not Reportable 12/13/17 05:56 ESR 97 mm/Hr (0-20) 12/13/17 05:56 Slim Bodies Not Reportable 12/13/17 05:56 Hem Pathologist Commnt No 12/13/17 05:56 PT 14.2 Sec. (12.2-14.9) 12/10/17 23:17 INR 1.05 (0.87-1.13) 12/10/17 23:17 APTT 31.7 Sec. (24.2-36.6) 12/10/17 23:17 D-Dimer 4736.01 ng/mlDDU (0-234) H 12/10/17 23:17 Heparin Anti-Xa Level 0.14 U.I./ml (0.3-0.7) L 12/12/17 11:17 POC ABG pH 7.399 (7.35-7.45) 12/10/17 22:57 POC ABG pCO2 30.9 (35-45) L 12/10/17 22:57 POC ABG pO2 127 (80-105) H 12/10/17 22:57 POC ABG HCO3 19.1 12/10/17 22:57 POC ABG Total CO2 20 12/10/17 22:57 POC ABG O2 Sat 99 12/10/17 22:57 POC ABG Base Excess -6 12/10/17 22:57 FiO2 100 % 12/10/17 22:57 Sodium 137 mmol/L (137-145) 12/16/17 05:17 Potassium 3.5 mmol/L (3.6-5.0) L 12/16/17 05:17 Chloride 95.9 mmol/L (98-107) L 12/16/17 05:17 Carbon Dioxide 28 mmol/L (22-30) 12/16/17 05:17 Anion Gap 17 mmol/L 12/16/17 05:17 BUN 16 mg/dL (7-17) 12/16/17 05:17 Creatinine 0.8 mg/dL (0.7-1.2) 12/16/17 05:17 Estimated GFR > 60 ml/min 12/16/17 05:17 BUN/Creatinine Ratio 20 % 12/16/17 05:17 Glucose 81 mg/dL (65-100) 12/16/17 05:17 Calcium 8.1 mg/dL (8.4-10.2) L 12/16/17 05:17 Magnesium 2.10 mg/dL (1.7-2.3) 12/15/17 05:16 Total Bilirubin 0.40 mg/dL (0.1-1.2) 12/15/17 05:16 AST 28 units/L (5-40) 12/15/17 05:16 ALT 53 units/L (7-56) 12/15/17 05:16 Alkaline Phosphatase 79 units/L (35-129) 12/15/17 05:16 Total Creatine Kinase 95 units/L (30-135) 12/11/17 14:09 CK-MB (CK-2) 10.7 ng/mL (0.0-4.0) H 12/11/17 14:09 CK-MB (CK-2) Rel Index 11.2 (0-4) H 12/11/17 14:09 Troponin T 1.570 ng/mL (0.00-0.029) H* 12/11/17 14:09 C-Reactive Protein 9.80 mg/dL (0.00-1.30) H 12/13/17 05:56 NT-Pro-B Natriuret Pep 16254 pg/mL (0-450) H 12/10/17 23:17 Total Protein 5.9 g/dL (6.3-8.2) L 12/15/17 05:16 Albumin 2.8 g/dL (3.9-5) L 12/15/17 05:16 Albumin/Globulin Ratio 0.9 % 12/15/17 05:16 Triglycerides 105 mg/dL (2-149) 12/10/17 23:17 Cholesterol 112 mg/dL (50-199) 12/10/17 23:17 LDL Cholesterol Direct 61 mg/dL (50-130) 12/10/17 23:17 HDL Cholesterol 29 mg/dL (40-59) L 12/10/17 23:17 Cholesterol/HDL Ratio 3.86 % 12/10/17 23:17 HCG, Qual Negative (Negative) 12/10/17 23:17 Urine Color Yellow (Yellow) 12/11/17 00:03 Urine Turbidity Hazy (Clear) 12/11/17 00:03 Urine pH 6.0 (5.0-7.0) 12/11/17 00:03 Ur Specific [place] 1.010 (1.003-1.030) 12/11/17 00:03 Urine Protein 100 mg/dl mg/dL (Negative) 12/11/17 00:03 Urine Glucose (UA) 50 mg/dL (Negative) 12/11/17 00:03 Urine Ketones Neg mg/dL (Negative) 12/11/17 00:03 Urine Blood Mod (Negative) 12/11/17 00:03 Urine Nitrite Neg (Negative) 12/11/17 00:03 Urine Bilirubin Neg (Negative) 12/11/17 00:03 Urine Urobilinogen 2.0 mg/dL (<2.0) 12/11/17 00:03 Ur Leukocyte Esterase Mod (Negative) 12/11/17 00:03 Urine WBC (Auto) 24.0 /HPF (0.0-6.0) H 12/11/17 00:03 Urine RBC (Auto) 31.0 /HPF (0.0-6.0) 12/11/17 00:03 U Epithel Cells (Auto) 3.0 /HPF (0-13.0) 12/11/17 00:03 Urine Bacteria (Auto) 2+ /HPF (Negative) 12/11/17 00:03 Urine Mucus Few /HPF 12/11/17 00:03 Urine Trichomonas Present /HPF 12/11/17 00:03 Urine Yeast (Budding) Not Reportable 12/11/17 00:03 Vancomycin Trough 25.2 ug/mL (5.0-20.0) H 12/13/17 20:33 Urine Opiates Screen Presumptive negative 12/11/17 00:03 Urine Methadone Screen Presumptive negative 12/11/17 00:03 Ur Barbiturates Screen Presumptive negative 12/11/17 00:03 Ur Phencyclidine Scrn Presumptive negative 12/11/17 00:03 Ur Amphetamines Screen Presumptive negative 12/11/17 00:03 U Benzodiazepines Scrn Presumptive positive 12/11/17 00:03 Urine Cocaine Screen Presumptive negative 12/11/17 00:03 U Marijuana (THC) Screen Presumptive negative 12/11/17 00:03 Drugs of Abuse Note Disclamer 12/11/17 00:03
--- NOTE | 2017-12-17 09:06 | Progress Note ---
Assessment and Plan Assessment: 1) Sepsis: resolved. Etiology most likely complicated MRSA septicemia. 2) Complicated MRSA bacteremia with TV endocarditis: source ? skin pustules ? IVDU (patient denies) - with persistent fever and patient left AMA on 12/10 -Blood cx 12/01 MRSA 4 of 4 bottles -Blood cx 12/05 neg -Blood cx 7/ neg -Blood cx / MRSA 2 of 4 bottles - vanco ILENE=2 -Blood cx 12/12 neg -TTE EF 35%, mod AR/AE -CT lumbar spine w/o cont normal -MRI lumbar and thoracic no abscesses -LIZZ large mobile mass at the septal tricuspid valve 1.4x0.8cm 3) CHF exacerbation in the setting acute endocarditis 4) Polysubstance abuse + Amph + marihuana 5) Mild UTI Plan: -per Cards - Discussed with (C.T.surgery) who has reviewed LIZZ. Pt also has moderate calcific , AR and moderate MR. To continue medical therapy ( IVABs) for 4 to 6 weeks. F/U serial blood cultures. -continue daptomycin -upon discharge will do daptomycin 360 mg IV qday total 6 weeks until 01/23/18. Orders sent to mental health case manager. -ID clinic f/u on 01/08/18 please be sure she makes the apt I am signing off, ok to d/c from ID standpoint Thank you for your consultation, will follow up with you. Samanta Marr MD Infectious Diseases Specialist [facility] M [phone] O [phone] Subjective Date of service: 12/17/17 Principal diagnosis: HF; sepsis Interval history: Feels better, no fever. wants to go home. Microbiology: Blood cx 12/01 MRSA 4 of 4 bottles Blood cx 12/05 neg Blood cx 7/2 neg Blood cx 7/ MRSA 2 of 4 bottles - vanco ILENE=2 Blood cx / neg Current Antimicrobials: dapto 12/15 Previous Antimicrobials: vanco 12/02-12/10 (left AMA) vanco / Objective - Exam Narrative Exam: General appearance: Alert in NAD, conversant anxious Eyes: anicteric sclerae, moist conjunctivae; no lid-lag; PERRLA HENT: Atraumatic; oropharynx clear with moist mucous membranes and no mucosal ulcerations/no oral thrush; normal hard and soft palate. Normal external ears. Neck: Trachea midline; supple, no thyromegaly or lymphadenopathy Lungs: chapin rales CV: RRR, + murmurs Abdomen: Soft, non-tender; no masses or hepatosplenomegaly Extremities: No peripheral edema or extremity lymphadenopathy Skin: Normal temperature, turgor and texture; no rash, ulcers or subcutaneous nodules Psych: Appropriate affect, alert and oriented to person, place and time. Neuro: alert and oriented x 3. Moving all extermities Lines: No CVL / PICC - Constitutional Vitals: Vital Signs Temp Pulse Resp BP Pulse Ox 98.3 F 98 H 18 137/71 95 12/17/17 07:35 12/17/17 07:35 12/17/17 07:35 12/17/17 07:35 12/17/17 07:35 Temperature -Last 24 Hours Temperature 98.3 F Temperature 99.4 F Temperature 100.2 F Temperature 99.4 F Temperature 98.5 F Temperature 99.4 F Temperature 98.9 F Temperature 98.9 F Temperature 98.9 F - Labs CBC & Chem 7: 12/15/17 05:16 12/16/17 05:17
[2017-12-17] MEDS: LOPRESSOR PO SCH (10:33)
[2017-12-17] MEDS: SODIUM CHLORIDE FLUSH SYRINGE 10 ML IV SCH (10:33)
[2017-12-17] MEDS: BABY ASPIRIN PO SCH (10:33)
[2017-12-17] MEDS: LASIX IV SCH (10:33)
--- NOTE | 2017-12-17 12:43 | Progress Note ---
Assessment and Plan Discussed with (C.T.surgery) who has reviewed LIZZ. Pt also has moderate calcific , AR and moderate MR.To continue medical therapy (IVABs) for 4 to 6 weeks. F/U serial blood cultures. Discussed with the patient. Currently stable cardiac status. Pt may discharge home from cardiology standpoint. Follow up in our [place] office with Dr. Courtney (AO unavailable) on 12/24/2017 @ 2:30PM. The patient has been seen in conjunction with Dr. Courtney who agrees with the assessment and plan of care. - Patient Problems (1) Anemia Current Visit: Yes Status: Acute (2) Heart failure with reduced ejection fraction Current Visit: Yes Status: Acute (3) Cardiomyopathy Current Visit: Yes Status: Chronic (4) Endocarditis of tricuspid valve Current Visit: Yes Status: Acute (5) Sepsis Current Visit: Yes Status: Acute (6) MRSA bacteremia Current Visit: Yes Status: Acute (7) NSTEMI (non-ST elevated myocardial infarction) Current Visit: Yes Status: Acute (8) Aortic stenosis Current Visit: Yes Status: Chronic (9) Mitral regurgitation Current Visit: Yes Status: Chronic (10) Polysubstance abuse Current Visit: Yes Status: Chronic Subjective Date of service: 12/17/17 Principal diagnosis: HF; sepsis Interval history: pt resting comfortably in bed, no current cardiac complaints. Objective Last Vital Signs Temp 98.2 F 12/17/17 11:20 Pulse 86 12/17/17 11:20 Resp 18 12/17/17 11:20 BP 127/70 12/17/17 11:20 Pulse Ox 93 12/17/17 11:20 - Physical Examination General: No Apparent Distress HEENT: Positive: PERRL, Normocephaly, Mucus Membranes Moist Neck: Positive: neck supple, trachea midline Cardiac: Positive: Reg Rate and Rhythm, S1/S2 Lungs: Positive: clear to auscultation Neuro: Positive: Grossly Intact Abdomen: Positive: Soft. Negative: Tender Skin: Positive: Clear. Negative: Rash, Wound Musculoskeletal: No Pain, Normal Range of Motion Extremities: Present: upper extr. pulses, lower extr. pulses. Absent: edema - Imaging and Cardiology EKG: report reviewed, image reviewed Echo: report reviewed - Telemetry EKG Rhythm: Sinus Rhythm - EKG Sinus rhythms and dysrhythmias: sinus rhythm (``) Chamber hypertrophy or enlargement: left atrial enlargement
[2017-12-17] MEDS ORDERED: ZESTRIL PO SCH (13:00)
[2017-12-17] MEDS: NACL 0.9% IV SCH (15:34)
[2017-12-17] MEDS: CUBICIN IV SCH (15:34)
[2017-12-17 17:02] VITALS: BP 124/75
--- NOTE | 2017-12-18 08:02 | Discharge Summary ---
Providers - Providers Date of Admission: 12/11/17 06:00 Date of discharge: 12/17/17 Attending physician: MARTINA BLACKWELL 12/11/17 06:00 Consult to Physician [CONS] Routine Comment: Consulting Provider: FLORECITA ANDRE Physician Instructions: Reason For Exam: elevated trop 12/12/17 16:08 Consult to Physician [CONS] Urgent Comment: Consulting Provider: SAMANTA GONZALEZ Physician Instructions: Reason For Exam: endocarditis 12/15/17 10:00 PICC Line Placement [Consult to PICC Line RN] [CONS] Routine Reason For Exam: long-term antibiotics Type Line:: PICC 12/15/17 18:11 psychiatry consult [Consult to Mental Health] [CONS] Routine Reason For Exam: generalized anxiety Place consult to:: Mental Health Notified:: Fanny URRUTIA Phone number called:: Ext. [phone] Was contact made?: Yes If yes, spoke with:: [facility] Time called:: 08:12 12/16/17 13:22 Consult to Case Management [CONS] Stat Services Needed at Discharge: Other Notified:: contact center analyst Additional Physician Instructions: [facility] ([facility] M [phone] O [phone] F [phone] OUTPATIENT PARENTERAL ANTIBIOTIC THERAPY ORDERS Diagnoses: MRSA septicemia and endocarditis Antimicrobial administration: daptomycin 360 mg IV qday total 6 weeks until 01/23/18. Remove PICC line after last dose unless otherwise instructed. Lines: PICC Lab monitoring: CBC, CMP, CRP, CK once a week preferly on Friday morning. Please fax results to [phone] and call [phone] for critical lab results. Samanta Riley Date: 12/16/17 Primary care physician: [employer] Hospitalization Reason for admission: chest pain/persistent MRSA bacteremia Condition: Serious Pertinent studies: Chest x-ray CTA chest LIZZ Echocardiogram Stress test Hospital course: 47-year-old female patient was admitted here for 10 days with persistent modestly bacteremia on Vanco, ID recommended long-term IV antibiotics however patient left AMA and returned the next day with chest pain, admitted to the hospital symptomatically managed, Patient was evaluated by cardiology, stress test was negative for reversible ischemia Patient had repeat blood cultures using this admission positive for a modest bacteremia Patient had LIZZ, which revealed tricuspid valve vegetation Cardiology consulted Dr. Rodriguez from [facility] cardiothoracic surgeon, for recommendations, advised 6 weeks of IV antibiotic therapy and review with him. ID has evaluated the patient and change the antibiotics from vancomycin to daptomycin For total of 6 weeks, PICC line was placed, porter sample case were sitting up IV antibiotics However yesterday patient left the hospital along with the PICC line, without informing the Nurses informed the security, 911 ,nursing cell operation supervisor according to the protocols. 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 Anxiety; consult psych, Xanax as needed --Severe malnutrition; nutrition supplements and supportive care Patient left AGAINST MEDICAL ADVICE[did not sign AMA note] Disposition: [id number] LEFT AGAINST MED ADVICE Time spent for discharge: 35 min Core Measure Documentation - Palliative Care Palliative Care/ Comfort Measures: Not Applicable - Core Measures Any of the following diagnoses?: none Exam - Physical Exam Narrative exam: AMA - Constitutional Vitals: Temp Pulse Resp BP Pulse Ox 99.6 F 100 H 18 124/75 96 12/17/17 15:55 12/17/17 15:55 12/17/17 15:55 12/17/17 15:55 12/17/17 15:55 Plan Additional Instructions: Patient left AMA Follow up with: ROBERT KO MD [Staff Physician] - 7 Days (Follow up in our [place] office with Dr. Courtney on 12/24/2017 @ 2:30PM. ) PRIMARY CAREMD [Primary Care Provider] - 3-5 Days
[2017-12-18] MEDS ORDERED: LASIX PO SCH (10:00)
== END 2017-12-17 18:30 | disposition left against medical advice (07) | DRG 871 ==
LOC: EDBD → ED 22:45 → 4A 12-11 06:00
PROVIDERS: ADMIT Internal Medicine; ATTEND Internal Medicine
PROC: 5A09457 Assistance with Respiratory Ventilation, 24-96 Consecutive Hours, Continuous Positive Airway Pressure (ICD-10-PCS; 2017-12-10)
PROC: 4A033R1 Measurement of Arterial Saturation, Peripheral, Percutaneous Approach (ICD-10-PCS; 2017-12-10)
PROC: 02HV33Z Insertion of Infusion Device into Superior Vena Cava, Percutaneous Approach (ICD-10-PCS; principal; 2017-12-15)
PROC: 5A09357 Assistance with Respiratory Ventilation, Less than 24 Consecutive Hours, Continuous Positive Airway Pressure (ICD-10-PCS; 2017-12-15)
DX: A41.02 Sepsis due to Methicillin resistant Staphylococcus aureus (principal); I50.23 Acute on chronic systolic (congestive) heart failure; I21.4 Non-ST elevation (NSTEMI) myocardial infarction; E43 Unspecified severe protein-calorie malnutrition; J96.00 Acute respiratory failure, unspecified whether with hypoxia or hypercapnia; J18.9 Pneumonia, unspecified organism; I42.9 Cardiomyopathy, unspecified; N39.0 Urinary tract infection, site not specified; I11.0 Hypertensive heart disease with heart failure; D64.9 Anemia, unspecified; F19.10 Other psychoactive substance abuse, uncomplicated; F41.1 Generalized anxiety disorder; I35.0 Nonrheumatic aortic (valve) stenosis; I07.9 Rheumatic tricuspid valve disease, unspecified; I34.0 Nonrheumatic mitral (valve) insufficiency; G89.29 Other chronic pain; M54.9 Dorsalgia, unspecified; G43.909 Migraine, unspecified, not intractable, without status migrainosus; E87.6 Hypokalemia; Z71.51 Drug abuse counseling and surveillance of drug abuser; Z68.25 Body mass index [BMI] 25.0-25.9, adult; Z82.49 Family history of ischemic heart disease and other diseases of the circulatory system
CPT/HCPCS: 36415; 71045; 71275; 78452; 80048; 80053; 80061; 80202; 80307; 81001; 82550; 82553; 82803; 83735; 83880; 84484; 84703; 85007; 85025; 85379; 85520; 85610; 85652; 85730; 86140; 86403; 87040; 87186; 93005; 93010; 93017; 93312; 93320; 93325; 94660; 94760; 96374; 96375; A9502; J0878; J1580; J1644; J1650; J1940; J2060; J2543; J2704; J2785; J3370; J7040; J7050; Q9967